=== PATIENT | male | born 1935 | race Caucasian/White ===

== ENCOUNTER → 2019-02-18 06:00 | Outpatient (REF) | payer MEDICARE, MEDICAID, SELFPAY ==
[2019-02-18 08:35] LABS: Hematocrit 42.8 % (40-54); Hemoglobin 13.9 g/dl (13.0-16.5); Mean Corp Hgb Conc 32.5 g/gl (32-36); Mean Corpuscular Hgb 31.8 pg (27.0-32.0); Mean Corpuscular Volume 97.9 fL (80-94); Platelet Count 146 K/mm3 (150-450); RBC Distribution Width CV 13.1 % (11.6-14.6); RBC Distribution Width SD 47.3 fl (35.1-43.9); Red Blood Count 4.37 M/mm3 (4.6-6.2)
[2019-02-18 08:38] LABS: Scan Indicated on CBC? Y/N NO
[2019-02-18 08:49] LABS: ALB/GLOB Ratio 0.9 RATIO (0.9-2.4); AST(SGOT) 23 U/L (15-37); Alanine Aminotransfer ALT/SGPT 30 U/L (16-61); Alkaline Phosphatase 50 U/L (45-117); Anion Gap 4 (5-15); BUN 17 mg/dL (7-18); BUN/Creat Ratio 12.3 RATIO (10-20); Calcium,Total 7.8 mg/dL (8.5-10.1); Chloride 111 mmol/L (98-107); Cholesterol 119 mg/dL (200); Creatinine, Serum 1.38 mg/dL (0.70-1.30); EST Glomerular Filtration Rate 52 mL/min (>60); Est Glom Filt Rate - Afr Amer 63 mL/min (>60); Globulin 3.3 g/dL (2.2-4.2); Glucose 98 mg/dL (74-106); High Density Lipoprotein 41 mg/dL; Protein, Total 6.3 g/dL (6.4-8.2); Sodium Level 141 mmol/L (136-145); Triglycerides 97 mg/dL; Very Low Density Lipoprotein 19 mg/dL (5-40)
== END ==
LOC: OLS.AVED 06:00
PROVIDERS: Visit Provider Family Medicine
DX: I10 Essential (primary) hypertension (principal); K21.9 Gastro-esophageal reflux disease without esophagitis
CPT/HCPCS: 36415; 80053; 80061; 85027

== ENCOUNTER → 2020-07-18 12:57 | Outpatient (CLI) | payer MEDICARE, MEDICAID, SELFPAY ==
--- NOTE | 2020-07-18 12:59 | ECHOD_ITS ---
Version 2 Reason For Study: Dyspnea/SOB Procedure This was a 2D Doppler, Color Flow transthoracic echocardiogram. Exam performed in department. Left Ventricle Normal LV size. Moderate concentric left ventricular hypertrophy. The estimated ejection fraction is 50 %. Stage 3 diastolic dysfunction. No regional wall motion abnormalities noted. Right Ventricle Normal RV size. Normal systolic function. Atria Normal left atrium. The right atrium is moderately enlarged. Tricuspid Valve Normal tricuspid valve. Mild (1+) tricuspid valve insufficiency. Pulmonary artery systolic pressure is 34 mmHg. Aortic Valve Trisinus/trileaflet aortic valve. Mild focal aortic valve calcification. Mild (1+) eccentric aortic valve insufficiency. Pulmonic Valve Normal pulmonic valve. Great Vessels Normal aortic root. The pulmonary artery is normal size. Normal inferior vena cava. Pericardium/Pleural No pericardial effusion. MMode/2D Measurements & Calculations LVIDd: 4.8 cm IVSd: 1.6 cm Ao root diam: 3.9 cm LVIDs: 3.4 cm LVPWd: 1.4 cm LA dimension: 4.1 cm FS: 29.8 % LAV(MOD-bp): 60.1 ml LA A4 area: 19.0 cm2 RA A4 area: 21.4 cm2 LAV(MOD-bp) Indexed: 24.8 ml/m2 LAV(MOD-sp2): 58.4 ml LAV(MOD-sp4): 56.8 ml Time Measurements MV dec time: 0.22 sec Doppler Measurements & Calculations MV E max chinedu: 81.5 cm/sec Lat Peak E' Chinedu: 9.9 cm/sec Med Peak E' Chinedu: 5.3 cm/sec MV A max chinedu: 35.5 cm/sec E/E' lat: 8.2 E/E' med: 15.4 MV E/A: 2.3 Ao V2 max: 132.1 cm/sec AI max chinedu: 479.0 cm/sec LV V1 max: 102.7 cm/sec Ao max P.0 mmHg AI max P.8 mmHg LV V1 max P.2 mmHg AI dec slope: 235.5 cm/sec2 AI P1/2t: 595.7 msec PA V2 max: 82.8 cm/sec TR max chinedu: 271.0 cm/sec TR max P.4 mmHg Interpretation Summary Normal LV size. Moderate concentric left ventricular hypertrophy. The estimated ejection fraction is 50 %. Stage 3 diastolic dysfunction. Mild (1+) eccentric aortic valve insufficiency. Ordering Physician: Evens Bermudez Referring Physician: Pawel Parra Performed By: Rolo Pereyra RCS
[2020-07-18 14:10] VITALS: PULSE 110; PULSE 76; PULSE 92; O2SAT 92; O2SAT 93
--- NOTE | 2020-07-18 14:12 | CPS ---
Patient walked continuously for 236 ft in the first 2 minutes, SpO2 92%. Patient about fell at the 2 minute and 26 second james, patient sat back down in wheelchair. Patient stated that his legs felt really weak and that he didn't think he could walk anymore.
--- NOTE | 2020-07-18 15:12 | PCM.PSN.6M ---
PSN 6 Minute Walk Test - 6 Minute Walk Test 6 Minute Walk Test: 6 Minute Walk Test PSN:6-Minute Walk Test Start: 07/18/20 14:10 Freq: Status: Active Protocol: [id number].6MINW Document 07/18/20 14:10 PEYTON (Rec: 07/18/20 14:14 PEYTON [id number]) 6 Minute Walk Test Date Performed 07/18/20 Time Performed 14:00 Height 6 ft Weight: 122.47 kg Weight in Pounds 270.[address]: Evens Bermudez Assistive device used: None Pre-test Oxygen Delivery Method Room Air Pulse Ox (%) 93 Pulse Rate (60-100 beats/min) 76 Dyspnea Galileo Scale (0-10) 0.5 Exertion Galileo Scale (6-20) 6 1st minute Oxygen Delivery Method Room Air Pulse Ox (%) 92 Pulse Rate (60-100 beats/min) 92 2nd minute Oxygen Delivery Method Room Air Pulse Ox (%) 92 Pulse Rate (60-100 beats/min) 110 H Full Laps Walked 4 Partial Lap, Number of Tiles Walked 0 Total Distance Walked (ft) 236 07/18/20 14:12 Cardiopulmonary Services by Breann Sesay Patient walked continuously for 236 ft in the first 2 minutes, SpO2 92%. Patient about fell at the 2 minute and 26 second james, patient sat back down in wheelchair. Patient stated that his legs felt really weak and that he didn't think he could walk anymore. Initialized on 07/18/20 14:12 - END OF NOTE - Interpretation Interpretation: The patient was able to ambulate only 236 feet over the course of 2 minutes on room air. The patient was noted to be 93% on room air, but had significant gait instability after 2 minutes. Patient did have some tachycardia as high as 110 bpm. The patient did not experience any significant desaturation during testing and stated that this is the longest I walked in a long time. These findings are consistent with a musculoskeletal limitation exercise tolerance. - Recommendations Recommendations: No supplemental oxygen is indicated at this time is greatly reduced given total distance of ambulation.
== END ==
PROVIDERS: PCP Family Medicine; Referring Provider Internal Medicine Critical Care Medicine; Visit Provider Internal Medicine Critical Care Medicine
DX: R06.00 Dyspnea, unspecified (principal)
CPT/HCPCS: 93306; 94618

== ENCOUNTER → 2020-07-19 09:51 | Outpatient (CLI) | payer MEDICARE, MEDICAID, SELFPAY ==
--- NOTE | 2020-07-19 13:44 | PFT ---
INTRODUCTION: The patient is an 85-year-old male that presents for pulmonary function studies secondary to a diagnosis of dyspnea. Respiratory therapy reports good patient effort. Bronchodilators were used during testing. INTERPRETATION: Forced expiration spirometry demonstrates the presence of a moderately severe large airways obstructive ventilatory defect. There was no significant response to aerosolized bronchodilators. Spirograms are of fair quality and plateau gradually. Body plethysmography was performed and reveals a decreased TLC to 5.56 L, 82% of predicted, indicative of a mild restrictive ventilatory impairment. Diffusing capacity by single breath CO is reduced at 51% of predicted. IMPRESSION: Irreversible moderately severe mixed ventilatory defect with symmetric reduction in diffusing capacity.
== END ==
PROVIDERS: PCP Family Medicine; Referring Provider Internal Medicine Critical Care Medicine; Visit Provider Internal Medicine Critical Care Medicine
DX: R06.00 Dyspnea, unspecified (principal)
CPT/HCPCS: 94060; 94726; 94729

== ENCOUNTER 2020-12-23 12:44 | Emergency (ER) | payer MEDICARE, MEDICAID, SELFPAY ==
[2020-12-23 12:45] VITALS: BP 125/75; PULSE 85; RESP 19; TEMP 36.9; O2SAT 96; BMI 27.6
--- NOTE | 2020-12-23 13:05 | EKG12_ITS ---
Test Reason : Blood Pressure : / mmHG Vent. Rate : 086 BPM Atrial Rate : 078 BPM P-R Int : 000 ms QRS Dur : 088 ms QT Int : 372 ms P-R-T Axes : 000 -24 053 degrees QTc Int : 445 ms Atrial fibrillation Nonspecific ST abnormality Abnormal ECG Confirmed by RAND NESBITT, SARAY ([id number]), makeup editor IMAN GARCIA ([id number]) on 12/27/2020 10:52:42 AM Referred By: DONNIE/TRINA Confirmed By:SARAY GORDILLO MD
--- NOTE | 2020-12-23 13:10 | NURSING ---
NO OLD EKGS
--- NOTE | 2020-12-23 13:21 | ED.VISSUMM ---
- ER Visit Summary Date of Service: 12/23/20 Chief Complaint: Weakness and confusion History of Present Illness: The patient is a 85 M who presents with weakness and confusion that became worse today. Patient has a history of dementia and Parkinson's disease. Patient does not know why he is here. Patient is a very poor historian. Patient does not think he had any fevers recently. Patient does not answer any further questions. Physical Examination: Vital signs are stable. Patient is afebrile. Patient is in no acute distress. Oral mucosa is pink and somewhat dry. Neck is supple. Trachea is midline. There is no JVD. Heart was irregularly irregular. Lungs are clear and equal bilaterally. Abdomen is soft. Bowel sounds are normal. There is no tenderness. There is no rebound or guarding noted. Cranial nerves II through XII are grossly intact. There are no focal motor or sensory deficits noted. Extremities are intact. There is no calf tenderness or edema. Test Results: EKG was obtained. On my interpretation, there is atrial fibrillation with a rate of 86. There are no acute ST or T wave changes. CBC shows a mild leukocytosis of 15.1. Comprehensive metabolic profile showed an elevated BUN of 36 and a elevated total bilirubin of 2.5. AST was normal. ALT was normal. Urinalysis shows a specific gravity 1.025. There is no evidence of urinary tract infection. Troponin was normal. Lactate was normal. COVID-19 rapid antigen was negative. Portable 1 view chest x-ray was obtained. On my interpretation, lung garrett are clear. There is a moderate sized hiatal hernia. There is normal cardiac silhouette. Bony thorax is normal. There is no acute process noted. Radiologist also interpreted the x-ray and agrees. Emergency Department Course and Treatment: Patient was given IV fluids. Patient was feeling better on reevaluation. Patient will be discharged back to his extended care facility. Patient and family understood and were agreeable with the plan. All questions were answered. Disposition: Discharge Impression: 1. Dehydration This note was generated with [employer] dictation software. It may contain incorrect words, spelling, and punctuation that were not noted in review of the chart prior to signing ED Disposition - Plan for ED Patient: Disposition: Jail Facility Diagnosis: Dehydration Instructions: ED Dehydration (Adult) Referrals: Pawel Parra MD [Primary Care Provider] - 5-7 Days
--- NOTE | 2020-12-23 13:23 | RAD_ITS ---
STUDY: X-RAY CHEST REASON FOR EXAM: Male, 85 years old. WEAKNESS AND CONFUSION HX OF COPD TECHNIQUE: Single AP portable view of the chest. COMPARISON: None. FINDINGS: EKG electrodes are seen. The lungs are clear and expanded. There is no demonstrated pleural abnormality. Normal size heart. Normal mediastinum and pasha. Normal visualized pulmonary arteries. There is atherosclerotic tortuosity of the aortic arch and descending thoracic aorta. There are degenerative changes of the visualized thoracic spine. There is degenerative osteoarthritis of the bilateral shoulders. Moderate sized hiatal hernia. RAD/Chest 1 View (Portable) IMPRESSION: Moderate sized hiatal hernia. Electronically Signed: Malik Sanchez MD at 13:57 EST , Service support ,
[2020-12-23 13:27] LABS: Absolute Neutrophil Count 10.5 X10^3/uL (2.0-7.7); Basophil# 0.04 X10^3/uL; Basophil% 0.3 % (0-1); Eosinophil# 0.17 X10^3/uL; Eosinophils% 1.1 % (0-5); Hemoglobin 13.9 g/dL (13.0-16.5); Lymphocyte % 12.6 % (19-41); Mean Corp Hgb Conc 31.6 g/dL (32-36); Mean Corpuscular Volume 101.1 fL (80-94); Mean Platelet Vol. 10.8 fl (6.2-12.0); Monocyte# 2.36 X10^3/uL; Monocyte% 15.7 % (0-10); NRBC Flagged by Analyzer 0 % (0-5); Neutrophil # 10.47 X10^3/uL (2.7-7.7); Neutrophil % 69.5 % (47-70); POSITIVE DIFFERENTIAL YES; Platelet Count 199 K/mm3 (150-450); RBC Distribution Width CV 12.5 % (11.6-14.6); RBC Distribution Width SD 47.4 fl (35.1-43.9); Red Blood Count 4.35 M/mm3 (4.6-6.2); White Blood Count 15.1 K/mm3 (4.4-11.0)
[2020-12-23 13:29] LABS: Differential Indicated SCAN CRITERIA MET
[2020-12-23 13:46] LABS: ALB/GLOB Ratio 0.6 RATIO (0.9-2.4); AST(SGOT) 12 U/L (15-37); Alanine Aminotransfer ALT/SGPT 28 U/L (16-61); Albumin, Serum 2.6 g/dL (3.2-5.0); Alkaline Phosphatase 94 U/L (45-117); Anion Gap 5 (5-15); BUN 36 mg/dL (7-18); BUN/Creat Ratio 27.7 RATIO (10-20); Calcium,Total 8.3 mg/dL (8.5-10.1); Chloride 108 mmol/L (98-107); EST Glomerular Filtration Rate 56 mL/min (>60); Est Glom Filt Rate - Afr Amer 68 mL/min (>60); Estimated Creatinine Clearance 47.26 ml/min; Globulin 4.3 g/dL (2.2-4.2); Glucose 105 mg/dL (74-106); Potassium 4.6 mmol/L (3.5-5.1); Protein, Total 6.9 g/dL (6.4-8.2); Sodium Level 138 mmol/L (136-145)
[2020-12-23 14:38] LABS: Bacteria 0 SEEN /hpf (None Seen); Mucous, Urine 0 SEEN /hpf (<or=2+)
[2020-12-23 14:44] LABS: Color, Urine Yellow (Yellow); Glucose, Dipstick Normal (Normal); Ketone-Dipstick 5 mg/dl (Negative); Leukocyte Esterase-Dipstick 25 /ul (Negative); Nitrite-Dipstick Negative (Negative); Occult Blood-Urine 10 /ul (Negative); Protein-Dipstick 30 mg/dl (Negative); Specific Gravity, Urine 1.025 (1.002-1.030); Urine Bilirubin Dipstick Negative (Negative); Urine Clarity Sl. Cloudy (Clear); Urine Urobilinogen 4 mg/dl (Normal)
[2020-12-23 14:46] VITALS: BP 131/77; PULSE 79; RESP 18; O2SAT 99
[2020-12-23] MEDS: 0.9% Normal Saline 1,000 ML 1000 ML IV (14:46)
[2020-12-23 14:49] LABS: Red Blood Cells-Urine 0-5 SEEN /hpf (0-5); Squamous Epithelial Cells - UA 0-5 SEEN /hpf (0-5); White Blood Cells 0-5 SEEN /hpf (0-5)
--- NOTE | 2020-12-23 15:36 | NURSING ---
FAXED CHART TO HOSPICE
[2020-12-23] MEDS: 0.9% Normal Saline 1,000 ML 999 ML IV (16:00)
[2020-12-23 16:01] VITALS: BP 141/67; PULSE 74; RESP 16; O2SAT 97
--- NOTE | 2020-12-23 16:52 | NURSING ---
CALLED [facility], ETA IS 2 HRS
--- NOTE | 2020-12-23 18:15 | NURSING ---
CALLED FOR [facility] UPDATE. THEY ARE WORKING ON GETTING A [facility] HERE.
[2020-12-23 18:58] VITALS: BP 133/71; PULSE 71; RESP 18; O2SAT 98
[2020-12-26 13:18] LABS: Pathologist Review Reviewed
== END 2020-12-23 20:23 | disposition skilled nursing facility (03) ==
PROVIDERS: Emergency Provider Emergency Medicine; PCP Family Medicine
DX: E86.0 Dehydration (principal); K44.9 Diaphragmatic hernia without obstruction or gangrene; G20 Parkinson's disease; F02.80 Dementia in other diseases classified elsewhere, unspecified severity, without behavioral disturbance, psychotic disturbance, mood disturbance, and anxiety; Z79.899 Other long term (current) drug therapy
CPT/HCPCS: 71045; 80053; 81001; 83605; 84484; 85025; 87040; 87426; 93005; 96360; 96361; 99285; J7030; A4216

== ENCOUNTER 2021-04-06 10:24 | Observation (INO) | payer MEDICARE, MEDICAID, SELFPAY ==
[2021-02-22 07:16] VITALS: BMI 27.1
[2021-04-06] VITALS (16 sets, daily range): BP systolic 149–179; BP diastolic 82–98; PULSE 71–102; RESP 16–20; TEMP 36.6–37; O2SAT 93–97; BMI 28.8; BMI 27.4
--- NOTE | 2021-04-06 10:44 | EKG12_ITS ---
Test Reason : STROKE TEAM Blood Pressure : / mmHG Vent. Rate : 083 BPM Atrial Rate : 065 BPM P-R Int : 000 ms QRS Dur : 106 ms QT Int : 402 ms P-R-T Axes : 000 -46 046 degrees QTc Int : 472 ms Atrial fibrillation Left anterior fascicular block Nonspecific ST abnormality Abnormal ECG Confirmed by RAND NESBITT, SARAY ([id number]), newspaper or periodical editor EILEEN MATHUR ([id number]) on 04/10/2021 12:30:54 PM Referred By: DAMIAN Confirmed By:SARAY GORDILLO MD
--- NOTE | 2021-04-06 10:44 | RAD_ITS ---
STUDY: X-RAY CHEST REASON FOR EXAM: Male, 86 years old. Neuro deficit, acute, stroke suspected TECHNIQUE: Single AP portable view of the chest. COMPARISON: Comparison is made with prior study dated 12/23/2020. FINDINGS: EKG electrodes are seen. The lungs are clear and expanded. There is no demonstrated pleural abnormality. Normal size heart. Normal mediastinum and pasha. Normal visualized pulmonary arteries. There is atherosclerotic tortuosity of the aortic arch and descending thoracic aorta. There are degenerative changes of the visualized thoracic spine. Normal visualized ribs, clavicles, and shoulders. There is no demonstrated abnormality of the visualized soft tissue structures of the upper abdomen. RAD/Chest 1 View IMPRESSION: No acute abnormality is seen. Electronically Signed: Malik Sanchez MD at 13:12 EDT , Service support ,
--- NOTE | 2021-04-06 10:45 | CT_ITS ---
STUDY: CTA HEAD AND NECK WITH CONTRAST REASON FOR EXAM: Male, 86 years old. Neuro deficit, acute, stroke suspected RADIATION DOSAGE (If Supplied By Facility): CTDIvol = ( 31.28 ) mGy, DLP = ( 775.41 ) mGycm TECHNIQUE: CT angiography was performed with a multi-detector CT scanner. Data acquisition was obtained from the skull base through the vertex following intravenous administration of IV 100mL [id number]-[id number]. MIP images were reconstructed from the axial data set. Post-processing of the angiographic images was performed, with multiplanar reformation and 3D reconstruction. Individualized dose optimization techniques were used for this CT. COMPARISON: No relevant priors. FINDINGS: Normal bilateral petrous carotid arteries. There is calcified plaque formation of the right cavernous carotid artery, without a cross-sectional luminal stenosis. There is calcified plaque formation of the left cavernous carotid artery, without a cross-sectional luminal stenosis. Normal right A1 segments of the anterior cerebral artery. Normal left A1 segments of the anterior cerebral artery. Normal intact anterior communicating artery (ACOM). Normal bilateral A2 segments of the anterior cerebral arteries. Normal right M1 and M2 segments of the middle cerebral arteries, with a normal M1 bifurcation. Normal left M1 and M2 segments of the middle cerebral arteries, with a normal M1 bifurcation. Normal right posterior communicating artery (PCOM). Normal left posterior communicating artery (PCOM). Normal bilateral vertebral arteries. Normal basilar artery with a normal basilar bifurcation. The visualized bilateral superior cerebellar (SCA) arteries are normal. Normal bilateral P1, P2 and visualized P3 segments of the posterior cerebral arteries. There is no demonstrated aneurysm of the [place]. There is no demonstrated abnormality of the visualized brain. AORTIC ARCH: There is atherosclerotic calcific plaque formation of the aortic arch and great vessels arising from the aortic arch, without a hemodynamically significant stenosis. There is a normal origin of the brachiocephalic, left common carotid, and left subclavian arteries. Normal origins of the brachiocephalic, left common carotid, and left subclavian arteries. RIGHT CAROTID ARTERIES: Normal right common carotid artery (CCA). Normal right common carotid bulb. There is extensive atherosclerotic plaque formation of the origin of the right internal carotid artery with an estimated stenosis of greater than 70%. Normal visualized cervical portion of the right internal carotid artery. Normal origin of the right external carotid artery (ECA). LEFT CAROTID ARTERIES: Normal left common carotid artery (CCA). Normal left common carotid bulb. There is extensive atherosclerotic plaque formation of the origin of the left internal carotid artery with an estimated stenosis of greater than 70%. Normal visualized cervical portion of the left internal carotid artery. Normal origin of the left external carotid artery (ECA). VERTEBRAL ARTERIES: There is enhancement within the bilateral vertebral arteries with a small left vertebral artery, and a dominant right vertebral artery. 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 N.B. : The above information has been verbally conveyed by Malik Sanchez MD to Osito John on 04/06/2021 11:24:15 (ET). Electronically Signed: Malik Sanchez MD at 11:25 EDT , Service support ,
--- NOTE | 2021-04-06 10:47 | ED.VIS.STROK ---
HPI History of Present Illness Chief Complaint: Weakness [facility] Medical History Anxiety disorder, unspecified Benign prostatic hyperplasia with lower urinary tract symptoms Chronic obstructive pulmonary disease, unspecified Dehydration Dementia Dementia with Lewy bodies Diarrhea Diplopia Dry eye syndrome of bilateral lacrimal glands Elevated WBC count Essential (primary) hypertension Generalized anxiety disorder GERD (gastroesophageal reflux disease) Hypertensive retinopathy, bilateral Impulse disorder, unspecified Major depressive disorder Migraine Muscle weakness (generalized) Obesity, unspecified Other right bundle-branch block Parkinson disease Parkinsons disease Peripheral vascular disease Presence of intraocular lens Repeated falls Unspecified atrial fibrillation Home Medications albuterol sulfate 2.5 mg INHALATION Q4H PRN 05/19/20 [History Last Taken Unknown] aluminum-mag hydroxide-simethicone 200 mg-200 mg-20 mg/5 mL oral susp 20 ml PO TID PRN 05/19/20 [History Last Taken Unknown] aspirin 81 mg tablet,delayed release 81 mg PO DAILY 05/19/20 [History Last Taken 12/22/20] fluticasone propionate 50 mcg/actuation nasal spray,suspension 2 spray INTRANASAL DAILY 05/19/20 [History Last Taken 12/22/20] guaifenesin 100 mg/5 mL oral liquid 200 mg PO Q4H PRN 05/19/20 [History Last Taken Unknown] ipratropium 20 mcg-albuterol 100 mcg/actuation mist for inhalation 1 puff INHALATION TID 05/19/20 [History Last Taken 12/22/20] lorazepam 0.5 mg tablet 0.5 mg PO DAILY PRN 05/19/20 [History Last Taken 12/22/20] melatonin 3 mg tablet 3 mg PO QHS 05/19/20 [History Last Taken 12/22/20] memantine 10 mg tablet 10 mg PO BID tab 05/19/20 [History Last Taken 12/22/20] metoprolol succ 25 mg-hydrochlorothiazide 12.5 mg tablet,ext.rel 24 hr 0.5 tab PO BID tab 05/19/20 [History Last Taken Unknown] mirtazapine 15 mg tablet 15 mg PO QHS 05/19/20 [History Last Taken Unknown] omeprazole 40 mg capsule,delayed release 40 mg PO DAILY 05/19/20 [History Last Taken 12/22/20] paroxetine HCl 40 mg tablet 40 mg PO DAILY 05/19/20 [History Last Taken Unknown] sodium phosphates 19 gram-7 gram/118 mL enema 118 ml RC ONCE PRN 05/19/20 [History Last Taken Unknown] tamsulosin 0.4 mg capsule 0.4 mg PO DAILY 05/19/20 [History Last Taken Unknown] lisinopril 20 mg PO DAILY 12/23/20 [History Last Taken 12/22/20] multivitamin with minerals 1 tab PO DAILY 12/23/20 [History Last Taken 12/22/20] polyethylene glycol 3350 17 gm PO DAILY 12/23/20 [History Last Taken 12/22/20] furosemide 40 mg PO DAILY 04/06/21 [History Last Taken Unknown] gabapentin 100 mg PO QHS 04/06/21 [History Last Taken Unknown] Allergy/AdvReac Type Severity Reaction Status Date / Time No Known Allergies Allergy Verified 04/06/21 10:26 Surgical History No pertinent past surgical history Social History Smoking Status: Former smoker Tobacco: How many years used: 9 ROS ROS ED Constitutional Constitutional ED: Denies chills, fever(s) or sweats Eyes Eyes: Denies blurry vision or change in vision ENT ENT ED: Denies ear pain, rhinorrhea or sore throat Cardiovascular Cardiovascular: Denies chest pain, palpitations or racing heartbeat Respiratory/Chest Respiratory/Chest: Reports dyspnea; Denies cough or sputum Gastrointestinal Gastrointestinal: Denies abdominal pain, constipation, diarrhea or vomiting Genitourinary Genitourinary ED: Denies dysuria, hematuria or urinary frequency Musculoskeletal Musculoskeletal: Denies arthralgias, myalgias or neck pain Integumentary Denies abscess, Abrasions or rash Neurologic Neurologic: Reports headache(s), paresthesias, weakness and other Details: Patient reports generalized weakness. His son states he was unable to finish his sentences this morning. Patient unable to let go of his drink with his right hand. He spilled this all over. Psychiatric Psychiatric: Denies anxiety, depression, suicidal ideation or suicidal thoughts Endocrine Endocrinology: Denies polydipsia or polyuria EXAM Physical Exam Const Vital Signs: 04/06/21 10:27 04/06/21 10:37 04/06/21 10:58 Temperature 97.8 F Temperature Source Temporal Pulse Rate 86 Respiratory Rate 18 Respiratory Effort Short of Breath Respiratory Pattern Normal Blood Pressure 179/84 H Blood Pressure Mean 115 Pulse Ox 96 Oxygen Delivery Method Room Air Room Air 04/06/21 11:03 04/06/21 11:08 04/06/21 11:11 Temperature Temperature Source Pulse Rate 86 97 95 Respiratory Rate 17 16 16 Respiratory Effort Respiratory Pattern Blood Pressure 152/86 H 152/86 H 152/86 H Blood Pressure Mean 108 108 108 Pulse Ox 94 93 94 Oxygen Delivery Method Room Air Room Air Room Air 04/06/21 11:30 04/06/21 12:00 04/06/21 13:00 Temperature Temperature Source Pulse Rate 81 82 82 Respiratory Rate 17 16 20 H Respiratory Effort Respiratory Pattern Blood Pressure 155/98 H 172/82 H 149/96 H Blood Pressure Mean 117 112 113 Pulse Ox 94 94 93 Oxygen Delivery Method Room Air Room Air Room Air General Appearance ED: Negative for pallor HEENT Reports normocephalic, head/scalp atraumatic and moist mucous membranes Eyes PERRL and EOMs intact bilaterally Neck no lymphadenopathy and supple Chest Wall inspection of chest normal and palpation of chest normal Resp normal respiratory effort and clear to auscultation bilaterally Auscultation: Negative for rales, rhonchi or wheezes Cardio regular rate and regular rhythm GI normal to inspection, nondistended, normoactive bowel sounds and non-distended Auscultation: normoactive bowel sounds Palpation: soft Narrative: Deferred Back/Spine no CVA tenderness General Back: Negative for CVA tenderness Cervical Spine: Negative for cervical spine tenderness Extremity normal to inspection General Extremety ED: Yes edema and tenderness General Extremity: edema Neuro oriented x3 and CN's II-XII intact bilaterally Neuro Narrative: Bilateral leg drift without hitting bed. Bilateral arm drift which does hit the bed. Tremor. Sensorium / Orientation: alert Motor Exam: strength 5/5 throughout Psych mental status grossly normal Attitude: No agitated Skin no rashes or lesions noted and no wounds General Skin Exam: Negative for jaundice or pallor STROKE Vital Signs/Narrative: Vital Signs Temp Pulse Resp BP Pulse Ox 04/06/21 13:00 82 20 H 149/96 H 93 04/06/21 12:00 82 16 172/82 H 94 04/06/21 11:30 81 17 155/98 H 94 04/06/21 11:11 95 16 152/86 H 94 04/06/21 11:08 97 16 152/86 H 93 04/06/21 11:03 86 17 152/86 H 94 04/06/21 10:27 97.8 F 86 18 179/84 H 96 MDM MDM MDM Narrative Medical decision making narrative: 86-year-old male presenting with strokelike symptoms. Son states that he was unable to get him to finish sentences and they had some difficulty grasping and then letting go of a cup. He denied any slurred speech. Son does state the patient has weakness at baseline has difficulty ambulating but today was unable to get up secondary to weakness. Patient's initial NIH was 6 however while being evaluated by neurology he was able to hold his arms and legs up without difficulty and had no drift. There has been no change in this since he improved. Patient had EKG performed on arrival which shows atrial fibrillation 83 bpm without signs of ischemic change. CT brain and CTA of the head and neck are negative for acute stroke. There is some narrowing of the bilateral internal carotid arteries. This was discussed with the stroke neurologist and I do not believe that this is the cause of the patient's symptoms. I do have concern he has worsening progression of his dementia and his Parkinson's disease. Was recommended to be admitted for MRI and neurology consult. Chest x-ray is interpreted by myself shows no acute cardiopulmonary process. Lab work is unremarkable. At this point I will admit the patient for TIA. Patient was given aspirin in the ED. His vital signs were reviewed prior to going to the medical floor and are stable. Impression: 1. TIA 2. History of Parkinson's disease 3. Generalized weakness Lab Data Attestation: I reviewed the patient's lab results. Labs: Laboratory Results - last 24 hr 04/06/21 04/06/21 04/06/21 11:01 11:02 11:02 WBC 8.9 RBC 3.99 L Hgb 12.5 L Hct 39.3 L MCV 98.5 H MCH 31.3 MCHC 31.8 L RDW Std Deviation 46.4 H RDW Coeff of Praneeth 12.7 Plt Count 196 MPV 10.2 Immature Gran % (Auto) 0.400 Neut % (Auto) 59.5 Lymph % (Auto) 26.6 Valley % (Auto) 11.0 H Eos % (Auto) 2.1 Baso % (Auto) 0.4 Absolute Neuts (auto) 5.3 Absolute Lymphs (auto) 2.37 Nucleated RBC % 0 PT 13.6 INR 1.1 APTT 30.1 Sodium Potassium Chloride Carbon Dioxide Anion Gap BUN Creatinine Estim Creat Clear Calc Est GFR (MDRD) Af Amer Est GFR (MDRD) Non-Af BUN/Creatinine Ratio Glucose Calcium Troponin I Urine Color Urine Clarity Urine pH Ur Specific [place] Urine Protein Urine Glucose (UA) Urine Ketones Urine Occult Blood Urine Nitrite Urine Bilirubin Urine Urobilinogen Ur Leukocyte Esterase Urine RBC Urine WBC Ur Squamous Epith Cells Urine Bacteria Urine Mucus POC Glucose 104 04/06/21 04/06/21 11:02 12:25 WBC RBC Hgb Hct MCV MCH MCHC RDW Std Deviation RDW Coeff of Praneeth Plt Count MPV Immature Gran % (Auto) Neut % (Auto) Lymph % (Auto) Valley % (Auto) Eos % (Auto) Baso % (Auto) Absolute Neuts (auto) Absolute Lymphs (auto) Nucleated RBC % PT INR APTT Sodium 141 Potassium 3.6 Chloride 102 Carbon Dioxide 34.0 H Anion Gap 5 BUN 29 H Creatinine 1.22 Estim Creat Clear Calc 49.47 Est GFR (MDRD) Af Amer 73 Est GFR (MDRD) Non-Af 60 BUN/Creatinine Ratio 23.8 H Glucose 96 Calcium 8.2 L Troponin I < 0.015 Urine Color Straw Urine Clarity Clear Urine pH 7.0 Ur Specific [place] 1.005 Urine Protein Negative Urine Glucose (UA) Normal Urine Ketones Negative Urine Occult Blood Negative Urine Nitrite Negative Urine Bilirubin Negative Urine Urobilinogen Normal Ur Leukocyte Esterase 25 H Urine RBC 0 SEEN Urine WBC 0-5 SEEN Ur Squamous Epith Cells 0-5 SEEN Urine Bacteria 0 SEEN Urine Mucus 0 SEEN POC Glucose Radiography Diagnostic Testing: Radiology Impression Chest X-Ray 04/06/21 10:44 IMPRESSION: No acute abnormality is seen. Electronically Signed: Malik Sanchez MD at 13:12 EDT , Service support , Head/Neck CTA 04/06/21 10:45 IMPRESSION: High-grade stenosis at the origins of the right and left internal carotid arteries. N.B. : The above information has been verbally conveyed by Malik Sanchez MD to Osito Lopez on 04/06/2021 11:24:15 (ET). Electronically Signed: Malik Sanchez MD at 11:25 EDT , Service support , ADDENDUM: 04/06/21 1132 IMPRESSION: High-grade stenosis at the origins of the right and left internal carotid arteries. N.B. : The above information has been verbally conveyed by Malik Sanchez MD to Osito Lopez on 04/06/2021 11:24:15 (ET). Electronically Signed: Malik Sanchez MD at 11:25 EDT , Service support , Brain CT 04/06/21 10:50 IMPRESSION: Chronic involutional changes of the brain. N.B. : The above information has been verbally conveyed by Malik Sanchez MD to Osito Lopez on 04/06/2021 11:05:25 (ET). Electronically Signed: Malik Sanchez MD at 11:06 EDT , Service support , ADDENDUM: 04/06/21 1113 IMPRESSION: Chronic involutional changes of the brain. N.B. : The above information has been verbally conveyed by Malik Sanchez MD to Osito Lopez on 04/06/2021 11:05:25 (ET). Electronically Signed: Malik Sanchez MD at 11:06 EDT , Service support , Stroke Documentation Questions Stroke Team Activated: Yes Reviewed Inclusion/Exclusion criteria: Yes Was Patient considered for Endovascular Intervention?: No IV Alteplase (t-PA) Administered: No No contraindications for IV Alteplase (t-PA) administration.: Yes Alteplase (t-PA) risks, benefits, alternative discussed: No Not given: Patient refusal: No Discharge Plan Dx/Rx/DC Orders Clinical Impression: TIA (transient ischemic attack), Episode of generalized weakness Disposition Disposition: Acute Care Hospital [facility]
--- NOTE | 2021-04-06 10:50 | CT_ITS ---
STUDY: CT HEAD STROKE PROTOCOL W/O CONTRAST INJECTION REASON FOR EXAM: Male, 86 years old. Neuro deficit, acute, stroke suspected RADIATION DOSAGE (If Supplied By Facility): CTDIvol = ( 44.99 ) mGy, DLP = ( 779.24 ) mGycm TECHNIQUE: Transaxial CT imaging of the brain was performed without administration of intravenous contrast material. Individualized dose optimization techniques were used for this CT. COMPARISON: No relevant priors. FINDINGS: Normal soft tissue structures. Normal calvarium. There is mild cerebral atrophy with widening of the extra-axial spaces and ventricular dilatation. There are areas of decreased attenuation within the white matter tracts of the supratentorial brain, consistent with microvascular disease changes. Normal basal ganglia and thalami. Normal brainstem. Normal cerebellum. There is no intracranial hemorrhage. There are no findings of an acute ischemic infarction. Atherosclerotic calcification of the vertebral arteries and cavernous portions of the internal carotid arteries bilaterally. Normal visualized paranasal sinuses. CT/STROKE Brain/Head without Cont IMPRESSION: Chronic involutional changes of the brain. N.B. : The above information has been verbally conveyed by Malik Sanchez MD to Osito Lopez on 04/06/2021 11:05:25 (ET). Electronically Signed: Malik Sanchez MD at 11:06 EDT , Service support ,
--- NOTE | 2021-04-06 10:50 | CM.ED ---
SOCIAL WORK Stroke Alert Responded to Stroke Alert. Patient out of room at this time. Family at bedside reviewing patient's medical history with nursing. This worker to remain available for needs. Zev Akhtar, [employer] OPERATOR, SIGNALLING AND COMMUNICATIONS ENGINEER
[2021-04-06 11:05] LABS: Bedside Glucose 104 mg/dL (70-110)
[2021-04-06 11:11] LABS: Absolute Lymphocyte Count 2.37 X10^3/uL (0.83-4.51); Absolute Neutrophil Count 5.3 X10^3/uL (2.0-7.7); Basophil# 0.04 X10^3/uL; Basophil% 0.4 % (0-1); Eosinophil# 0.19 X10^3/uL; Eosinophils% 2.1 % (0-5); Hematocrit 39.3 % (40-54); Hemoglobin 12.5 g/dL (13.0-16.5); Lymphocyte # 2.37 X10^3/ul (0.83-4.51); Lymphocyte % 26.6 % (19-41); Mean Corp Hgb Conc 31.8 g/dL (32-36); Mean Corpuscular Hgb 31.3 pg (27.0-32.0); Mean Corpuscular Volume 98.5 fL (80-94); Mean Platelet Vol. 10.2 fl (6.2-12.0); Monocyte# 0.98 X10^3/uL; NRBC Flagged by Analyzer 0 % (0-5); Neutrophil # 5.28 X10^3/uL (2.7-7.7); Neutrophil % 59.5 % (47-70); Platelet Count 196 K/mm3 (150-450); RBC Distribution Width CV 12.7 % (11.6-14.6); RBC Distribution Width SD 46.4 fl (35.1-43.9); Red Blood Count 3.99 M/mm3 (4.6-6.2); White Blood Count 8.9 K/mm3 (4.4-11.0)
[2021-04-06 11:19] LABS: International Normalized Ratio 1.1; Prothrombin Time (Protime)PT. 13.6 SECONDS (11.7-14.9)
[2021-04-06 11:20] LABS: Partial Thromboplast Time 30.1 Seconds (24.1-36.2)
[2021-04-06 11:30] LABS: Anion Gap 5 (5-15); BUN 29 mg/dL (7-18); BUN/Creat Ratio 23.8 RATIO (10-20); Calcium,Total 8.2 mg/dL (8.5-10.1); Chloride 102 mmol/L (98-107); Creatinine, Serum 1.22 mg/dL (0.70-1.30); EST Glomerular Filtration Rate 60 mL/min (>60); Est Glom Filt Rate - Afr Amer 73 mL/min (>60); Estimated Creatinine Clearance 49.47 ml/min; Glucose 96 mg/dL (74-106); Potassium 3.6 mmol/L (3.5-5.1); Sodium Level 141 mmol/L (136-145)
[2021-04-06 12:33] LABS: Bacteria 0 SEEN /hpf (None Seen); Mucous, Urine 0 SEEN /hpf (<or=2+); Red Blood Cells-Urine 0 SEEN /hpf (0-5)
[2021-04-06 12:34] LABS: Color, Urine Straw (Yellow); Glucose, Dipstick Normal (Normal); Ketone-Dipstick Negative (Negative); Leukocyte Esterase-Dipstick 25 /ul (Negative); Nitrite-Dipstick Negative (Negative); Occult Blood-Urine Negative /ul (Negative); Protein-Dipstick Negative (Negative); Specific Gravity, Urine 1.005 (1.002-1.030); Urine Bilirubin Dipstick Negative (Negative); Urine Clarity Clear (Clear); Urine Urobilinogen Normal (Normal)
[2021-04-06 12:40] LABS: Squamous Epithelial Cells - UA 0-5 SEEN /hpf (0-5); White Blood Cells 0-5 SEEN /hpf (0-5)
--- NOTE | 2021-04-06 13:01 | HP.PCM.HOS_ITS ---
HPI - General General Date of Admission: 04/06/21 HPI Narrative ANDER ESCOBAR, is a 86 M with an extensive PMH as outlined who was admitted via the ED on 04/06/2021 with a complaint of complaint of weakness. His last knewn well awas at 9pm last night, and started having some shakiness of his extremities. He was noted to be having more shakiness of his extremities, and spilled water. His son was by his bedside went to see him in the retirement today and noticed that his father was much more tremulous than usual so the decided to bring him into the hospital. He has not noticed any focal deficit but notes that his father has been having difficulty swallowing. He denied any fever, chills, palpitations, dizziness, nausea vomiting or diarrhea. Review of systems otherwise negative. Due to concerns about a possible stroke, he was brought in to the ED. He was also noted to have some expressive aphasia, so a stroke alert was called. Neurology was consulted and thought his symptoms could be due to an extension of his dementia and Parkinson's disease. In the ED, vitals showed BP of 172/82, CO of 82, RR of 16 and he was saturating at 94% on room air. CBC showed Hb of 12.5, and platelets of 196. BMP showed Cr of 1.22. UA showed wbc of 0-5. CT of the brain was negative for stroke and showed only chronic involutional changes. CTA of the head and neck showed extensive atherosclerotic plaque formation of the origin of the right and left internal carotid arteries with an estimated stenosis of greater than 70%. He is being admitted to be managed for increased tremors and altered mental status, to rule out a stroke. [facility] Medical History Anxiety disorder, unspecified Benign prostatic hyperplasia with lower urinary tract symptoms Chronic obstructive pulmonary disease, unspecified Dehydration Dementia Dementia with Lewy bodies Diarrhea Diplopia Dry eye syndrome of bilateral lacrimal glands Elevated WBC count Essential (primary) hypertension Generalized anxiety disorder GERD (gastroesophageal reflux disease) Hypertensive retinopathy, bilateral Impulse disorder, unspecified Major depressive disorder Migraine Muscle weakness (generalized) Obesity, unspecified Other right bundle-branch block Parkinson disease Parkinsons disease Peripheral vascular disease Presence of intraocular lens Repeated falls Unspecified atrial fibrillation Home Medications aspirin 81 mg tablet,delayed release 81 mg PO DAILY 05/19/20 [History Last Taken 04/06/21 08:24] fluticasone propionate 50 mcg/actuation nasal spray,suspension 2 spray INTRANASAL DAILY 05/19/20 [History Last Taken 04/06/21 08:24] ipratropium 20 mcg-albuterol 100 mcg/actuation mist for inhalation 1 puff INHALATION 4X/DAY 05/19/20 [History Last Taken 04/05/21 11:49] lorazepam 0.5 mg tablet 0.5 mg PO DAILY PRN 05/19/20 [History Last Taken 04/06/21 09:24] melatonin 3 mg tablet 3 mg PO QHS 05/19/20 [History Last Taken 04/05/21 20:14] memantine 10 mg tablet 10 mg PO BID tab 05/19/20 [History Last Taken 04/06/21 08:24] mirtazapine 15 mg tablet 15 mg PO QHS 05/19/20 [History Last Taken 04/05/21 20:14] omeprazole 40 mg capsule,delayed release 40 mg PO DAILY 05/19/20 [History Last Taken 04/06/21 08:24] paroxetine HCl 40 mg tablet 40 mg PO DAILY 05/19/20 [History Last Taken 04/06/21 08:24] tamsulosin 0.4 mg capsule 0.4 mg PO DAILY 05/19/20 [History Last Taken 04/05/21 20:14] lisinopril 20 mg PO DAILY 12/23/20 [History Last Taken 04/06/21 08:24] multivitamin with minerals 1 tab PO DAILY 12/23/20 [History Last Taken 04/06/21 08:24] polyethylene glycol 3350 17 gm PO DAILY 12/23/20 [History Last Taken 04/06/21 08:24] acetaminophen [Tylenol] 325 mg PO TID PRN 04/06/21 [History Last Taken 04/06/21 05:03] furosemide 40 mg PO DAILY 04/06/21 [History Last Taken 04/06/21 08:24] gabapentin 100 mg PO QHS 04/06/21 [History Last Taken 04/05/21 20:14] metoprolol tartrate 12.5 mg PO BID 04/06/21 [History Last Taken 04/06/21 08:24] nut tx, lact-reduced, iron [Boost VHC] 1 ea PO TID 04/06/21 [History Last Taken 04/06/21 08:24] sennosides [senna] 8.6 mg PO DAILY 04/06/21 [History Last Taken 04/06/21 08:24] tramadol 50 mg PO Q8H PRN 04/06/21 [History Last Taken 04/06/21 04:49] Allergy/AdvReac Type Severity Reaction Status Date / Time No Known Allergies Allergy Verified 04/06/21 10:26 Surgical History No pertinent past surgical history Social History Smoking Status: Former smoker Tobacco: How many years used: 9 ROS Constitutional Constitutional: Denies chills, fatigue, malaise or weakness Eyes Eyes: Denies blurry vision, discharge from eye(s) or double vision ENT HEENT: Denies abnormal hearing or hearing loss Cardiovascular Cardiovascular: Denies chest pain, dyspnea on exertion, lightheadedness, paroxysmal nocturnal dyspnea or rapid heart rate Respiratory/Chest Respiratory/Chest: Denies cough, dyspnea, shortness of breath at rest or shortness of breath with exertion Gastrointestinal Gastrointestinal: Denies abdominal pain, diarrhea, nausea or vomiting Neurologic Neurologic: Reports tremor(s); Denies abnormal gait, abnormal speech, dizziness or focal weakness Psychiatric Psychiatric: Denies anxiety or depression Endocrine Endocrinology: Denies change in body appearance Vital Signs Vital Signs Vital Signs: 04/06/21 10:27 04/06/21 10:37 04/06/21 10:58 Temperature 97.8 F Temperature Source Temporal Pulse Rate 86 Respiratory Rate 18 Respiratory Effort Short of Breath Respiratory Pattern Normal Blood Pressure 179/84 H Blood Pressure Mean 115 Pulse Ox 96 Oxygen Delivery Method Room Air Room Air 04/06/21 11:03 04/06/21 11:08 04/06/21 11:11 Temperature Temperature Source Pulse Rate 86 97 95 Respiratory Rate 17 16 16 Respiratory Effort Respiratory Pattern Blood Pressure 152/86 H 152/86 H 152/86 H Blood Pressure Mean 108 108 108 Pulse Ox 94 93 94 Oxygen Delivery Method Room Air Room Air Room Air 04/06/21 11:30 04/06/21 12:00 Temperature Temperature Source Pulse Rate 81 82 Respiratory Rate 17 16 Respiratory Effort Respiratory Pattern Blood Pressure 155/98 H 172/82 H Blood Pressure Mean 117 112 Pulse Ox 94 94 Oxygen Delivery Method Room Air Room Air Physical Exam Const alert and oriented x3 General Appearance: cooperative HEENT normocephalic and head/scalp atraumatic Eyes PERRL, EOMs intact bilaterally and conjunctivae normal Neck no lymphadenopathy and supple Resp Resp Narrative: has bilateral wheezing in all lung garrett, which son says is chronic. Auscultation: wheezes Cardio regular rate, regular rhythm, S1 normal heart sound, S2 normal heart sound and no murmurs GI normal to inspection, nondistended, normoactive bowel sounds, soft to palpation, non-tender and non-distended Extremity normal to inspection and full ROM Skin no rashes or lesions noted and no wounds Neuro oriented x3 and CN's II-XII intact bilaterally Neuro Narrative: patient has very severe tremors of UEs and LEs, unable to even hold a cup of water without spilling it; has choking with attempts to drink water. Moves all lower limbs spontaneously. No facial droop noted. Sensorium / Orientation: awake Psych affect normal Lab / Micro Data Result Diagrams: 04/06/21 11:02 04/06/21 11:02 Labs: Laboratory Results - last 24 hr 04/06/21 04/06/21 04/06/21 11:01 11:02 11:02 WBC 8.9 RBC 3.99 L Hgb 12.5 L Hct 39.3 L MCV 98.5 H MCH 31.3 MCHC 31.8 L RDW Std Deviation 46.4 H RDW Coeff of Praneeth 12.7 Plt Count 196 MPV 10.2 Immature Gran % (Auto) 0.400 Neut % (Auto) 59.5 Lymph % (Auto) 26.6 [place] % (Auto) 11.0 H Eos % (Auto) 2.1 Baso % (Auto) 0.4 Absolute Neuts (auto) 5.3 Absolute Lymphs (auto) 2.37 Nucleated RBC % 0 PT 13.6 INR 1.1 APTT 30.1 Sodium Potassium Chloride Carbon Dioxide Anion Gap BUN Creatinine Estim Creat Clear Calc Est GFR (MDRD) Af Amer Est GFR (MDRD) Non-Af BUN/Creatinine Ratio Glucose Calcium Troponin I Urine Color Urine Clarity Urine pH Ur Specific [place] Urine Protein Urine Glucose (UA) Urine Ketones Urine Occult Blood Urine Nitrite Urine Bilirubin Urine Urobilinogen Ur Leukocyte Esterase Urine RBC Urine WBC Ur Squamous Epith Cells Urine Bacteria Urine Mucus POC Glucose 104 04/06/21 04/06/21 11:02 12:25 WBC RBC Hgb Hct MCV MCH MCHC RDW Std Deviation RDW Coeff of Praneeth Plt Count MPV Immature Gran % (Auto) Neut % (Auto) Lymph % (Auto) [place] % (Auto) Eos % (Auto) Baso % (Auto) Absolute Neuts (auto) Absolute Lymphs (auto) Nucleated RBC % PT INR APTT Sodium 141 Potassium 3.6 Chloride 102 Carbon Dioxide 34.0 H Anion Gap 5 BUN 29 H Creatinine 1.22 Estim Creat Clear Calc 49.47 Est GFR (MDRD) Af Amer 73 Est GFR (MDRD) Non-Af 60 BUN/Creatinine Ratio 23.8 H Glucose 96 Calcium 8.2 L Troponin I < 0.015 Urine Color Straw Urine Clarity Clear Urine pH 7.0 Ur Specific [place] 1.005 Urine Protein Negative Urine Glucose (UA) Normal Urine Ketones Negative Urine Occult Blood Negative Urine Nitrite Negative Urine Bilirubin Negative Urine Urobilinogen Normal Ur Leukocyte Esterase 25 H Urine RBC 0 SEEN Urine WBC 0-5 SEEN Ur Squamous Epith Cells 0-5 SEEN Urine Bacteria 0 SEEN Urine Mucus 0 SEEN POC Glucose Radiology Impression Head/Neck CTA 04/06/21 10:45 IMPRESSION: High-grade stenosis at the origins of the right and left internal carotid arteries. N.B. : The above information has been verbally conveyed by Malik Sanchez MD to Osito Lopez on 04/06/2021 11:24:15 (ET). Electronically Signed: Malik Sanchez MD at 11:25 EDT , Service support , ADDENDUM: 04/06/21 1132 IMPRESSION: High-grade stenosis at the origins of the right and left internal carotid arteries. N.B. : The above information has been verbally conveyed by Malik Sanchez MD to Osito Lopez on 04/06/2021 11:24:15 (ET). Electronically Signed: Malik Sanchez MD at 11:25 EDT , Service support , Brain CT 04/06/21 10:50 IMPRESSION: Chronic involutional changes of the brain. N.B. : The above information has been verbally conveyed by Malik Sanchez MD to Osito Lopez on 04/06/2021 11:05:25 (ET). Electronically Signed: Malik Sanchez MD at 11:06 EDT , Service support , ADDENDUM: 04/06/21 1113 IMPRESSION: Chronic involutional changes of the brain. N.B. : The above information has been verbally conveyed by Malik Sacnhez MD to Osito John on 04/06/2021 11:05:25 (ET). Electronically Signed: Malik Sanchez MD at 11:06 EDT , Service support , Assessment & Plan Assessment/Plan (1) Tremors of nervous system: (2) Myoclonic jerking: (3) TIA (transient ischemic attack): PLAN: #Generalised myoclonic jerks * Family concerned about possible stroke. Patient has such extensive jerking a nd tremors of his extremities that he is not even able to hold a cup well epigastric area he drinks water. * CT of the brain was negative for stroke and CTA of the head and neck * admit to PCU with telemetry * get MRI of the brain * start aspirin * 2D echo. check ammonia level * consult neurology * get speech therapy. Fall precautions. * this could be a worsening of his Parkinson's disease as well; son says he thinks patient takes his medications but cannot be certain. * continue memantine * electrolytes are WNL. UA showed no evidence of UTI * fall precautions * * #History of parkinson's disease: on memantine # #History of chronc HfpEF: stable. not in exacerbation. on lasix 40mg daily #History of dementia: stable. # Hypertension: on lisinopril and metoprolol. #Depression: on mirtazapine. #BPH: on flomax #GERD: on PPI #History of afib: * rate controlled. * on metoprolol. * Not anticoagulated, likely due to history of dementia and Parkinson's disease. * DVT prophylaxis: lovenox CODE STATUS: Full code * I discussed CODE STATUS with patient and son and clarified the difference between full code, DNR CCA and DNR CCA. Patient elects to be full code. Visit Charges OBSV E&M: 59576 Initial observation care L3 Procedures Hospitalists Procedures: 52413 Advncd Care Plan 30 Min
[2021-04-06] MEDS: 0.9% Normal Saline 1,000 ML 999 ML IV (13:40)
[2021-04-06] MEDS: Aspirin 325 MG Tablet PO (13:53)
--- NOTE | 2021-04-06 14:10 | MRI_ITS ---
STUDY: MRI BRAIN WITHOUT CONTRAST REASON FOR EXAM: Male, 86 years old. acute metabolic encephalopathy TECHNIQUE: Standardized multiplanar fat and water weighted pulse sequences were obtained. COMPARISON: CT of the brain 04/06/2021 FINDINGS: Moderate atrophy and mild to moderate periventricular white matter ischemic change without mass effect or restricted diffusion. There appears to be focal gliosis in left frontal parietal region which may be on the basis of subacute ischemic changes or nonspecific cerebritis. Normal bilateral basal ganglia. Normal thalami. There is no extra-axial fluid accumulation. Normal flow voids within the major intracranial circulation suggesting patency by spin echo criteria. Normal sella turcica, pituitary gland, infundibular stalk, optic chiasm and hypothalamus. Normal tectal plate and pineal gland. Normal midbrain, arjun and medulla. Normal cerebellum. Normal basal cisterns. Normal bilateral temporal bones. Normal bilateral internal auditory canals. No demonstrated orbital abnormality, within the constraints of a routine brain study. Normal visualized paranasal sinuses. Normal calvarium and skull base. Normal visualized soft tissue structures. Normal visualized upper cervical spine. MRI/Brain without Contrast IMPRESSION: Atrophy and mild to moderate periventricular white matter ischemic change without evidence for acute infarct.. Focal gliosis in left frontal parietal region possibly on the basis of subacute ischemic changes or nonspecific cerebritis. Clinical correlation is recommended Electronically Signed: Graeme Manzo MD at 16:25 EDT , Service support ,
--- NOTE | 2021-04-06 14:12 | ECHOD_ITS ---
Reason For Study: TIA/CVA Procedure This was a 2D Doppler, Color Flow transthoracic echocardiogram. Exam performed portable in patient room. Left Ventricle Normal LV size. Left ventricular systolic function is normal. The estimated ejection fraction is 55 %. Stage 3 diastolic dysfunction. No regional wall motion abnormalities noted. Right Ventricle Normal RV size. Normal systolic function. Atria The left atrium is mildly enlarged. Normal right atrium. Bubble contrast study negative for right to left interatrial shunt. Mitral Valve Normal mitral valve. Mild (1+) eccentric mitral valve insufficiency. Tricuspid Valve Normal tricuspid valve. Mild (1+) tricuspid valve insufficiency. Pulmonary artery systolic pressure is 38 mmHg. Aortic Valve Trisinus/trileaflet aortic valve. Mild-Moderate (1-2+) aortic valve insufficiency. Pulmonic Valve Normal pulmonic valve. Great Vessels Normal aortic root. The pulmonary artery is normal size. Normal inferior vena cava. Pericardium/Pleural No pericardial effusion. Medication Performed a rapid injection of agitated mix of 9 cc saline and 1cc air to assess for atrial septal defect. MMode/2D Measurements & Calculations LVIDd: 4.7 cm IVSd: 1.2 cm Ao root diam: 3.9 cm LVIDs: 3.0 cm LVPWd: 1.3 cm RVDd: 2.6 cm FS: 36.2 % LAV(MOD-bp): 80.6 ml LA A4 area: 22.3 cm2 LA dimension(2D): 3.7 cm LAV(MOD-bp) Indexed: 36.9 ml/m2 LAV(MOD-sp2): 77.7 ml LAV(MOD-sp4): 77.0 ml RA A4 area: 14.7 cm2 Time Measurements MV dec time: 0.14 sec Doppler Measurements & Calculations MV E max chinedu: 89.2 cm/sec Lat Peak E' Chinedu: 11.7 cm/sec Med Peak E' Chinedu: 8.9 cm/sec MV A max chinedu: 35.2 cm/sec E/E' lat: 7.6 E/E' med: 10.0 MV E/A: 2.5 Ao V2 max: 148.1 cm/sec AI max chinedu: 491.4 cm/sec LV V1 max: 105.0 cm/sec Ao max P.8 mmHg AI max P.8 mmHg LV V1 max P.4 mmHg Ao V2 mean: 99.6 cm/sec AI dec slope: 372.9 cm/sec2 LV V1 mean P.1 mmHg Ao mean P.5 mmHg AI P1/2t: 386.0 msec LV V1 mean: 68.4 cm/sec Ao V2 VTI: 24.9 cm LV V1 VTI: 17.6 cm PA V2 max: 71.5 cm/sec TR max chinedu: 290.4 cm/sec TR max P.7 mmHg ECHO/Echo Complete Interpretation Summary Normal LV size. Left ventricular systolic function is normal. The estimated ejection fraction is 55 %. Stage 3 diastolic dysfunction. Mild-Moderate (1-2+) aortic valve insufficiency. Bubble contrast study negative for right to left interatrial shunt. Ordering Physician: Kristin Holly Referring Physician: Pawel Parra Performed By: Leticia Husain RDCS, RVT
--- NOTE | 2021-04-06 15:05 | NURSING ---
MRI here for bead picker. MRI questionnaire not filled out. Lorri in MRI notified. Lorri stated she will fill out in MRI dept.
[2021-04-06] MEDS: 0.9% Normal Saline 1,000 ML 125 ML IV ×2 (16:17→23:31)
[2021-04-06 16:46] LABS: AST(SGOT) 10 U/L (15-37); Alanine Aminotransfer ALT/SGPT 14 U/L (16-61); Albumin, Serum 2.9 g/dL (3.2-5.0); Alkaline Phosphatase 53 U/L (45-117); Bilirubin, Direct 0.14 mg/dL (0.00-0.30); Protein, Total 6.9 g/dL (6.4-8.2)
--- NOTE | 2021-04-06 17:06 | TELEMED_ITS ---
[facility] has confirmed receipt of a request for visit. This document confirms receipt of the order initiating the consult. To find the results of the consultation, please view the patient's reports for the scanned Telemed Consult.
[2021-04-06] MEDS: Ipratropium/Albuterol Sulfate 3 ML AMPUL.NEB INHALATION (18:36)
[2021-04-06] MEDS: MELATONIN 3 MG TABLET PO (20:11)
[2021-04-06] MEDS: Gabapentin 100 MG Capsule PO (20:11)
[2021-04-06] MEDS: Memantine Hydrochloride 10 MG Tablet PO (20:11)
[2021-04-06] MEDS: Mirtazapine 15 MG Tablet PO (20:11)
[2021-04-06] MEDS: LORazepam 0.5 MG Tablet PO (20:11)
--- NOTE | 2021-04-06 20:13 | NURSING ---
pt keeps taking hear monitor off. Pt took his goqn off. Pt very restless. tv put on but didnt help. ativan given
[2021-04-07] VITALS (11 sets, daily range): BP systolic 113–176; BP diastolic 71–98; PULSE 76–107; RESP 16–20; TEMP 36.3–37; O2SAT 92–98
[2021-04-07 06:56] LABS: Absolute Lymphocyte Count 2.54 X10^3/uL (0.83-4.51); Absolute Neutrophil Count 3.6 X10^3/uL (2.0-7.7); Basophil# 0.04 X10^3/uL; Basophil% 0.6 % (0-1); Eosinophil# 0.21 X10^3/uL; Eosinophils% 2.9 % (0-5); Hematocrit 41.6 % (40-54); Hemoglobin 13.3 g/dL (13.0-16.5); Lymphocyte # 2.54 X10^3/ul (0.83-4.51); Lymphocyte % 35.4 % (19-41); Mean Corpuscular Hgb 31.3 pg (27.0-32.0); Mean Corpuscular Volume 97.9 fL (80-94); Mean Platelet Vol. 10.5 fl (6.2-12.0); Monocyte# 0.77 X10^3/uL; Monocyte% 10.7 % (0-10); NRBC Flagged by Analyzer 0 % (0-5); Neutrophil % 50.1 % (47-70); Platelet Count 198 K/mm3 (150-450); RBC Distribution Width CV 12.8 % (11.6-14.6); Red Blood Count 4.25 M/mm3 (4.6-6.2); White Blood Count 7.2 K/mm3 (4.4-11.0)
[2021-04-07 07:21] LABS: Anion Gap 6 (5-15); BUN 21 mg/dL (7-18); BUN/Creat Ratio 18.8 RATIO (10-20); Calcium,Total 8.3 mg/dL (8.5-10.1); Chloride 107 mmol/L (98-107); Cholesterol 176 mg/dL (200); Creatinine, Serum 1.12 mg/dL (0.70-1.30); EST Glomerular Filtration Rate 66 mL/min (>60); Est Glom Filt Rate - Afr Amer 80 mL/min (>60); Estimated Creatinine Clearance 53.89 ml/min; Glucose 100 mg/dL (74-106); High Density Lipoprotein 44 mg/dL; Potassium 3.6 mmol/L (3.5-5.1); Sodium Level 142 mmol/L (136-145); Triglycerides 143 mg/dL; Very Low Density Lipoprotein 29 mg/dL (5-40)
[2021-04-07] MEDS: Ipratropium/Albuterol Sulfate 3 ML AMPUL.NEB INHALATION ×3 (07:21→19:20)
--- NOTE | 2021-04-07 08:41 | CASEMGMT ---
Patient is from [facility]. GALILEO faxed updates to [facility]. Green sheet will be placed on patient's chart in the event he is ready for discharge over the weekend. Plan: d/c back to [facility]ie ORELLANA
[2021-04-07] MEDS: Fluticasone 0.05% 1 SPRAY NASAL.SRY 2 SPRAY NASAL (08:58)
[2021-04-07] MEDS: Polyethylene Glycol 3350 17 GM PACKET PO (08:59)
[2021-04-07] MEDS: Enoxaparin 40 MG/0.4 ML Syringe SC (08:59)
[2021-04-07] MEDS: Memantine Hydrochloride 10 MG Tablet PO (08:59)
[2021-04-07] MEDS: Aspirin E.C. 81 MG Tablet PO (08:59)
[2021-04-07] MEDS: Lisinopril 20 MG Tablet PO (08:59)
[2021-04-07] MEDS: Multivitamins,Therapeutic Tablet 1 TABLET PO (08:59)
[2021-04-07] MEDS: Furosemide 40 MG Tablet PO (08:59)
[2021-04-07] MEDS: Paroxetine 20 MG Tablet 40 MG PO (08:59)
[2021-04-07] MEDS: Senna Tablet 1 TABLET PO (08:59)
[2021-04-07] MEDS: Pantoprazole Sodium 40 MG Tablet PO (08:59)
[2021-04-07] MEDS: Tamsulosin HCl 0.4 MG Capsule PO (08:59)
--- NOTE | 2021-04-07 13:54 | PCM.DC.SUM ---
Providers Date of Admission: 04/06/21 Primary Care Physician: Dr. Pawel Parra MD Reason For Visit: TIA, ACUTE METABOLIC ENCEPHALOPATHY Diagnosis Discharge Diagnosis (1) Tremors of nervous system: Status: Acute Code(s): R25.1 - Tremor, unspecified (2) Myoclonic jerking: Status: Acute Code(s): G25.3 - Myoclonus (3) TIA (transient ischemic attack): Status: Acute Code(s): G45.9 - Transient cerebral ischemic attack, unspecified (4) Dementia associated with Parkinson's disease: Status: Acute Code(s): G20 - Parkinson's disease; F02.80 - Dementia in other diseases classified elsewhere without behavioral disturbance Medications at Discharge Home Medications aspirin 81 mg tablet,delayed release 81 mg PO DAILY 05/19/20 fluticasone propionate 50 mcg/actuation nasal spray,suspension 2 spray INTRANASAL DAILY 05/19/20 ipratropium 20 mcg-albuterol 100 mcg/actuation mist for inhalation 1 puff INHALATION 4X/DAY 05/19/20 lorazepam 0.5 mg tablet 0.5 mg PO DAILY PRN 05/19/20 melatonin 3 mg tablet 3 mg PO QHS 05/19/20 memantine 10 mg tablet 10 mg PO BID tab 05/19/20 mirtazapine 15 mg tablet 15 mg PO QHS 05/19/20 omeprazole 40 mg capsule,delayed release 40 mg PO DAILY 05/19/20 paroxetine HCl 40 mg tablet 40 mg PO DAILY 05/19/20 tamsulosin 0.4 mg capsule 0.4 mg PO DAILY 05/19/20 lisinopril 20 mg PO DAILY 12/23/20 multivitamin with minerals 1 tab PO DAILY 12/23/20 polyethylene glycol 3350 17 gm PO DAILY 12/23/20 Boost VHC 1 ea PO TID 04/06/21 acetaminophen [Tylenol] 325 mg PO TID PRN 04/06/21 furosemide 40 mg PO DAILY 04/06/21 gabapentin 100 mg PO QHS 04/06/21 metoprolol tartrate 12.5 mg PO BID 04/06/21 sennosides [senna] 8.6 mg PO DAILY 04/06/21 tramadol 50 mg PO Q8H PRN 04/06/21 atorvastatin 40 mg PO DAILY #30 tab 05/07/21 carbidopa-levodopa 0.5 tab PO DAILY@0730 #30 tab 04/07/21 Hospital Course Operations None Procedures None Summary of Care Provided Minutes Spent on Discharge: 45 Hospital Course: ANDER ESCOBAR, is a 86 M with an extensive PMH as outlined who was admitted via the ED on 04/06/2021 with a complaint of complaint of weakness. His last knewn well awas at 9pm last night, and started having some shakiness of his extremities. He was noted to be having more shakiness of his extremities, and spilled water. His son was by his bedside went to see him in the assisted today and noticed that his father was much more tremulous than usual so the decided to bring him into the hospital. He has not noticed any focal deficit but notes that his father has been having difficulty swallowing. He denied any fever, chills, palpitations, dizziness, nausea vomiting or diarrhea. Review of systems otherwise negative. Due to concerns about a possible stroke, he was brought in to the ED. He was also noted to have some expressive aphasia, so a stroke alert was called. Neurology was consulted and thought his symptoms could be due to an extension of his dementia and Parkinson's disease. In the ED, vitals showed BP of 172/82, AK of 82, RR of 16 and he was saturating at 94% on room air. CBC showed Hb of 12.5, and platelets of 196. BMP showed Cr of 1.22. UA showed wbc of 0-5. CT of the brain was negative for stroke and showed only chronic involutional changes. CTA of the head and neck showed extensive atherosclerotic plaque formation of the origin of the right and left internal carotid arteries with an estimated stenosis of greater than 70%. He was admitted to be managed for increased tremors and altered mental status, to rule out a stroke. HE had a brain MRI which was negative for stroke. [facility] neurology was consulted, and per neurology, his symptoms of worsening tremors and confusion were likely due to a progresion of his dementia, which was likely Lewy Body Dementia. Neurology recommended starting half dose of Sinemet 25/100 daily before meals, and to titrate the dose upwards after a week to half a dose twice daily before meals. His lipid panel showed total cholesterol 176 with LDL of 103 and HDL of 44. UA showed no evidence of UTI. Patient remained stable and on 04/07/2021, his tremors are improved significantly and he was able to drink fluids and eat without spilling from tremors. Patient was discharged back to his assisted on 04/07/2021. He was discharged with a prescription for half tablet of Sinemet 25/100 daily before meals. This will be titrated upwards as stated above. He is to follow-up with vascular surgery also on account of bilateral carotid stenosis and also to follow-up with neurology on outpatient basis. Patient was seen and examined prior to discharge. He had no complaints and felt well. He felt his tremors are improved. Mediastinum is otherwise negative. Labs and vital reviewed. Medication reviewed and reconciled. He was also discharged with a script for PO atorvastatin 40mg qhs. Physical Exam Const alert and oriented x3 General Appearance: cooperative and comfortable Orientation / Consciousness: awake Exam Limitations: no limitations HEENT normocephalic and head/scalp atraumatic Eyes PERRL, EOMs intact bilaterally and conjunctivae normal Neck no lymphadenopathy and supple Resp Resp Narrative: has bilateral wheezing in all lung garrett, which son says is chronic. Auscultation: wheezes Cardio regular rate, regular rhythm, S1 normal heart sound, S2 normal heart sound and no murmurs GI normal to inspection, nondistended, normoactive bowel sounds, soft to palpation, non-tender and non-distended Extremity normal to inspection and full ROM Skin no rashes or lesions noted and no wounds Neuro oriented x3 and CN's II-XII intact bilaterally Neuro Narrative: patient had minimal tremors of extremities today Sensorium / Orientation: awake Psych affect normal ABG / Lab / Microbiology Data Result Diagrams: 04/07/21 06:18 04/07/21 06:18 Laboratory: Laboratory Results - last 24 hr 04/06/21 04/06/21 04/07/21 11:02 17:01 06:18 WBC 7.2 RBC 4.25 L Hgb 13.3 Hct 41.6 MCV 97.9 H MCH 31.3 MCHC 32.0 RDW Std Deviation 46.0 H RDW Coeff of Praneeth 12.8 Plt Count 198 MPV 10.5 Immature Gran % (Auto) 0.300 Neut % (Auto) 50.1 Lymph % (Auto) 35.4 [place] % (Auto) 10.7 H Eos % (Auto) 2.9 Baso % (Auto) 0.6 Absolute Neuts (auto) 3.6 Absolute Lymphs (auto) 2.54 Nucleated RBC % 0 Sodium Potassium Chloride Carbon Dioxide Anion Gap BUN Creatinine Estim Creat Clear Calc Est GFR (MDRD) Af Amer Est GFR (MDRD) Non-Af BUN/Creatinine Ratio Glucose Calcium Total Bilirubin 0.60 Direct Bilirubin 0.14 AST 10 L ALT 14 L Alkaline Phosphatase 53 Ammonia 23.0 Total Protein 6.9 Albumin 2.9 L Globulin 4.0 Triglycerides Cholesterol LDL Cholesterol VLDL Cholesterol HDL Cholesterol 04/07/21 06:18 WBC RBC Hgb Hct MCV MCH MCHC RDW Std Deviation RDW Coeff of Praneeth Plt Count MPV Immature Gran % (Auto) Neut % (Auto) Lymph % (Auto) [place] % (Auto) Eos % (Auto) Baso % (Auto) Absolute Neuts (auto) Absolute Lymphs (auto) Nucleated RBC % Sodium 142 Potassium 3.6 Chloride 107 Carbon Dioxide 29.0 Anion Gap 6 BUN 21 H Creatinine 1.12 Estim Creat Clear Calc 53.89 Est GFR (MDRD) Af Amer 80 Est GFR (MDRD) Non-Af 66 BUN/Creatinine Ratio 18.8 Glucose 100 Calcium 8.3 L Total Bilirubin Direct Bilirubin AST ALT Alkaline Phosphatase Ammonia Total Protein Albumin Globulin Triglycerides 143 Cholesterol 176 LDL Cholesterol 103 VLDL Cholesterol 29 HDL Cholesterol 44 Radiography Diagnostic Testing: Radiology Impression Brain MRI 04/06/21 14:10 IMPRESSION: Atrophy and mild to moderate periventricular white matter ischemic change without evidence for acute infarct.. Focal gliosis in left frontal parietal region possibly on the basis of subacute ischemic changes or nonspecific cerebritis. Clinical correlation is recommended Electronically Signed: Graeme Manzo MD at 16:25 EDT , Service support , D/C Instructions Discharge Diet: Low fat / Low cholesterol Discharge Activity: Return to Normal Activity Weight Bearing Status: Weight bearing as tolerated Call your doctor if you observe: Fever of 101 or Higher, Numbness or Tingling and Dizziness Meaningful Use Info Meaningful Use Diagnoses (Choose all that apply): None applicable Discharge Plan Admission Admit Date/Time: 04/06/21 13:19 Primary Reason for Your Visit: tremors, altered mental status Attending Provider: Kristin Holly Primary Care Provider: Pawel Parra Discharge Orders/Prescriptions Prescriptions: New carbidopa-levodopa 25-100 mg Tablet 0.5 tab PO DAILY@0730 Qty: 30 RF: 0 atorvastatin 40 mg tablet 40 mg PO DAILY Qty: 30 RF: 1 Continued aspirin 81 mg tablet,delayed release (DR/EC) 81 mg PO DAILY RF: 0 Combivent Respimat 20-100 mcg/actuation mist 1 puff INHALATION 4X/DAY RF: 0 fluticasone propionate [Flonase Allergy Relief] 50 mcg/actuation spray,suspension 2 spray INTRANASAL DAILY RF: 0 lorazepam 0.5 mg tablet 0.5 mg PO DAILY PRN (Reason: Anxiety) RF: 0 melatonin 3 mg tablet 3 mg PO QHS RF: 0 memantine 10 mg tablet 10 mg PO BID RF: 0 omeprazole 40 mg capsule,delayed release(DR/EC) 40 mg PO DAILY RF: 0 paroxetine HCl 40 mg tablet 40 mg PO DAILY RF: 0 mirtazapine [Remeron] 15 mg tablet 15 mg PO QHS RF: 0 tamsulosin 0.4 mg capsule 0.4 mg PO DAILY RF: 0 polyethylene glycol 3350 17 GM packet 17 gm PO DAILY RF: 0 lisinopril 20 MG tablet 20 mg PO DAILY RF: 0 multivitamin with minerals 1 EACH tablet 1 tab PO DAILY RF: 0 furosemide 40 mg Tablet 40 mg PO DAILY RF: 0 sennosides [senna] 8.6 mg Tablet 8.6 mg PO DAILY RF: 0 acetaminophen [Tylenol] 325 mg Tablet 325 mg PO TID PRN (Reason: Pain) RF: 0 tramadol 50 mg Tablet 50 mg PO Q8H PRN (Reason: Pain) RF: 0 gabapentin 100 mg Capsule 100 mg PO QHS RF: 0 metoprolol tartrate 25 mg Tablet 12.5 mg PO BID RF: 0 Boost VHC 0.09-2.25 gram-kcal/mL Liquid 1 ea PO TID RF: 0 Referrals / Follow Up: Caesar Salcedo MD [STAFF PHYSICIAN] - Within 1 Month Pawel Parra MD [Primary Care Provider] - In 1 Week Nahum Rice MD [STAFF PHYSICIAN] - Within 2 Weeks Disposition Disposition (needs filled in before D/C Order can be placed[facility] Visit Charges OBSV E&M: 20991 Observation care discharge
--- NOTE | 2021-04-07 14:04 | CASEMGMT ---
SW did not complete a PHQ 9 with patient as he did not have a Stroke or TIA. Sadie Marcos SCENIC DESIGNER ESTEBAN
--- NOTE | 2021-04-07 14:27 | CASEMGMT ---
STACEY BARRERA NOTE: Call placed to pt's daughter, Beatriz Meredith form explained re: Observation status for treatment of TIA and acute metabolic encephalopathy. Explained hospitalization will be paid per insurance policy for Outpatient billing and condition will continue to be evaluated for Inpt necessity. Also let her know that [facility] sends paper in the billing packet with their phone number if questions arise. Dtr verbalizes understanding and does not have any questions. Note placed on form that phone signature obtained and copy made and placed in chart, and original placed in pt's folder in his room. Viri made aware pt is being discharged back to [facility] today. She asks that RN contact her when pt leaves [facility] so she can meet her father @ the [facility] when he arrives. RN, Yarelis, made aware of same. Loren MACHADO RN CM
--- NOTE | 2021-04-07 14:28 | PCM.TXEXTCAR ---
Diet 04/06/21 16:44 Diet: Regular - General Food consistency:: Easy to Chew Liquid Consistency:: Regular/Thin Is pt able to select menu?: Yes Diet Comments: 1:1 supervised with assistance feeding Routine Orders/Code Status Enema Type: Fleetz Enema Frequency: Daily PRN Suppository Type: Dulcolax 10mg Suppository Frequency: Daily PRN O2 Frequency: PRN Keep PO Greater than or Equal to (%): 90 Therapies Weight Bearing: Weight bearing as tolerated Physical Therapy: Eval and Treat Occupational Therapy: Eval and Treat Speech Therapy: Eval and Treat Problem/Diagnosis (1) Tremors of nervous system: Status: Acute (2) Myoclonic jerking: Status: Acute (3) TIA (transient ischemic attack): Status: Acute (4) Dementia associated with Parkinson's disease: Status: Acute Allergies/Procedures Done in Hospital Allergies No Known Allergies Allergy (Verified 04/06/21 10:26) Procedures: None Type of Care/Length of Stay Estimated LOS: More Than 30 Days Type of Care Needed: Skilled Rehab Potential: Fair Prognosis: Fair Additional Orders/Day of Discharge Day of Discharge: 04/07/21 Dietary and Speech Recommendations Speech Linguistic Eval Summary: Pt alert and agreeable to ST. Pt with initial confusion believing he was at home. In addition, pt unable to provide reason why he may be at the hospital. Pt oriented to name and . Pt reoriented to location and reason for admission. 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 Pt with word finding deficits in conversation. Pt able to follow verbal directions with repetition. Follow Up Care Please follow up with your Primary Care Physician in: 1-2 weeks Please Follow Up With: Dr Nahum Rice When: 1-2 weeks Please Follow Up With: Caesar Salcedo When: within one month for carotid stenosis Discharge Plan Admission Admit Date/Time: 04/06/21 13:19 Primary Reason for Your Visit: tremors, altered mental status Attending Provider: Kristin Holly Primary Care Provider: Pawel Parra Discharge Orders/Prescriptions Prescriptions: New carbidopa-levodopa 25-100 mg Tablet 0.5 tab PO DAILY@0730 Qty: 30 RF: 0 atorvastatin 40 mg tablet 40 mg PO DAILY Qty: 30 RF: 1 Continued aspirin 81 mg tablet,delayed release (DR/EC) 81 mg PO DAILY RF: 0 Combivent Respimat 20-100 mcg/actuation mist 1 puff INHALATION 4X/DAY RF: 0 fluticasone propionate [Flonase Allergy Relief] 50 mcg/actuation spray,suspension 2 spray INTRANASAL DAILY RF: 0 lorazepam 0.5 mg tablet 0.5 mg PO DAILY PRN (Reason: Anxiety) RF: 0 melatonin 3 mg tablet 3 mg PO QHS RF: 0 memantine 10 mg tablet 10 mg PO BID RF: 0 omeprazole 40 mg capsule,delayed release(DR/EC) 40 mg PO DAILY RF: 0 paroxetine HCl 40 mg tablet 40 mg PO DAILY RF: 0 mirtazapine [Remeron] 15 mg tablet 15 mg PO QHS RF: 0 tamsulosin 0.4 mg capsule 0.4 mg PO DAILY RF: 0 polyethylene glycol 3350 17 GM packet 17 gm PO DAILY RF: 0 lisinopril 20 MG tablet 20 mg PO DAILY RF: 0 multivitamin with minerals 1 EACH tablet 1 tab PO DAILY RF: 0 furosemide 40 mg Tablet 40 mg PO DAILY RF: 0 sennosides [senna] 8.6 mg Tablet 8.6 mg PO DAILY RF: 0 acetaminophen [Tylenol] 325 mg Tablet 325 mg PO TID PRN (Reason: Pain) RF: 0 tramadol 50 mg Tablet 50 mg PO Q8H PRN (Reason: Pain) RF: 0 gabapentin 100 mg Capsule 100 mg PO QHS RF: 0 metoprolol tartrate 25 mg Tablet 12.5 mg PO BID RF: 0 Boost VHC 0.09-2.25 gram-kcal/mL Liquid 1 ea PO TID RF: 0 Referrals / Follow Up: Caesar Salcedo MD [STAFF PHYSICIAN] - Within 1 Month Pawel Parra MD [Primary Care Provider] - In 1 Week Nahum Rice MD [STAFF PHYSICIAN] - Within 2 Weeks Disposition Disposition (needs filled in before D/C Order can be placed): [facility] Living Facility
--- NOTE | 2021-04-07 16:53 | NURSING ---
Report called to [facility] nurse Collin.
== END 2021-04-07 20:00 | disposition skilled nursing facility (03) ==
LOC: ED 13:21 → PCU 13:30
PROVIDERS: Admitting Provider Student in an Organized Health Care Education/Training Program; Emergency Provider Student in an Organized Health Care Education/Training Program; PCP Family Medicine; Visit Provider Student in an Organized Health Care Education/Training Program
DX: G45.9 Transient cerebral ischemic attack, unspecified (principal); G31.83 Neurocognitive disorder with Lewy bodies; F02.80 Dementia in other diseases classified elsewhere, unspecified severity, without behavioral disturbance, psychotic disturbance, mood disturbance, and anxiety; R29.818 Other symptoms and signs involving the nervous system; J44.9 Chronic obstructive pulmonary disease, unspecified; K21.9 Gastro-esophageal reflux disease without esophagitis; I11.0 Hypertensive heart disease with heart failure; I73.9 Peripheral vascular disease, unspecified; E66.9 Obesity, unspecified; F41.1 Generalized anxiety disorder; F32.9 Major depressive disorder, single episode, unspecified; H35.033 Hypertensive retinopathy, bilateral; G25.3 Myoclonus; I50.32 Chronic diastolic (congestive) heart failure; N40.0 Benign prostatic hyperplasia without lower urinary tract symptoms; R47.01 Aphasia; R29.706 NIHSS score 6; I48.91 Unspecified atrial fibrillation; R29.6 Repeated falls; Z79.899 Other long term (current) drug therapy; Z79.82 Long term (current) use of aspirin; Z96.1 Presence of intraocular lens; Z79.51 Long term (current) use of inhaled steroids; Z87.891 Personal history of nicotine dependence
CPT/HCPCS: 36415; 70450; 70496; 70498; 70551; 71045; 80048; 80061; 80076; 81001; 82140; 82962; 84484; 85025; 85610; 85730; 92523; 92526; 92610; 93005; 93306; 94640; 94762; 96360; 96361; 96372; 97162; 97166; 99218; 99285; J7030; Q9967; A4216; G0378

== ENCOUNTER 2022-03-12 09:26 | Outpatient (CLI) | payer MEDICARE, MEDICAID, SELFPAY ==
--- NOTE | 2022-03-12 09:36 | MRI_ITS ---
EXAM: MR CERVICAL SPINE WITHOUT INTRAVENOUS CONTRAST CLINICAL INDICATION: gait disorder, neck pain Technologist Notes Increase in tremors, neck pain TECHNIQUE: Multiplanar and multisequence MR images of the cervical spine without intravenous contrast were performed. This report was created using [employer] report True Fit technology. COMPARISON: None. FINDINGS: VERTEBRAE: There is straightening of the normal cervical lordosis. SPINAL CORD: Unremarkable in signal and morphology. SOFT TISSUES: Unremarkable. No prevertebral soft tissue swelling. LYMPH NODES: Unremarkable. There is no cervical adenopathy. DISCS/SPINAL CANAL/NEURAL FORAMINA: C2-C3: C2-3: Loss of intervertebral disc height. There is endplate spondylosis of the vertebral body. Normal central canal and intervertebral neuroforamina. There is bilateral facet arthropathy. C3-C4: C3-4: Loss of intervertebral disc height. There is endplate spondylosis of the vertebral body. Narrowing of the bilateral intervertebral neuroforamina. There is bilateral facet arthropathy. Posterior disc bulge. Mild spinal stenosis. Impression upon anterior thecal sac. C4-C5: C4-5: Loss of intervertebral disc height. There is endplate spondylosis of the vertebral body. Narrowing of the bilateral intervertebral neuroforamina. There is bilateral facet arthropathy. Posterior disc bulge. Mild spinal stenosis. Impression upon anterior thecal sac. Mild cord compression. C5-C6: C5-6: Loss of intervertebral disc height. There is endplate spondylosis of the vertebral body. Narrowing of the bilateral intervertebral neuroforamina. There is bilateral facet arthropathy. Posterior disc bulge. Mild spinal stenosis. Impression upon anterior thecal sac. C6-C7: C6-7: Loss of intervertebral disc height. There is endplate spondylosis of the vertebral body. Narrowing of the bilateral intervertebral neuroforamina. There is bilateral facet arthropathy. Posterior disc bulge. Normal spinal canal. C7-T1: Loss of intervertebral disc height. There is endplate spondylosis of the vertebral body. Normal central canal and intervertebral neuroforamina. There is bilateral facet arthropathy. Posterior disc bulge. MRI/Spine Cervical (Routine) IMPRESSION: 1. There is straightening of the normal cervical lordosis. 2. C4-5: Loss of intervertebral disc height. There is endplate spondylosis of the vertebral body. Narrowing of the bilateral intervertebral neuroforamina. There is bilateral facet arthropathy. Posterior disc bulge. Mild spinal stenosis. Impression upon anterior thecal sac. Mild cord compression. 3. C5-6: Loss of intervertebral disc height. There is endplate spondylosis of the vertebral body. Narrowing of the bilateral intervertebral neuroforamina. There is bilateral facet arthropathy. Posterior disc bulge. Mild spinal stenosis. Impression upon anterior thecal sac. Electronically Signed: Anson Hilton MD at 15:07 EDT ,
--- NOTE | 2022-03-12 09:36 | MRI_ITS ---
STUDY: MR Brain WO/W Contrast 03/12/2022 3:07 PM REASON FOR EXAM: Male, 87 years old. Parkinson''s, dementia, gait disorder COMPARISON: 5.6. TECHNIQUE: Standardized multiplanar fat and water weighted pulse sequences were obtained. MR Brain WO/W Contrast FINDINGS: There is mild cerebral atrophy with widening of the extra-axial spaces and ventricular dilatation. There are a limited number of small white matter hyperintensities, distributed throughout the deep white matter tracts of the cerebral hemispheres, consistent with mild chronic white matter ischemic changes. There is mild prominence of the vermian folia, consistent with atrophy of the vermis. The cerebellar hemispheres are normal. Normal bilateral basal ganglia. Normal thalami. There is no extra-axial fluid accumulation. Normal flow voids within the major intracranial circulation suggesting patency by spin echo criteria. Normal sella turcica, pituitary gland, infundibular stalk, optic chiasm and hypothalamus. Normal tectal plate and pineal gland. Normal midbrain, arjun and medulla. Normal basal cisterns. Normal bilateral temporal bones. Normal bilateral internal auditory canals. No demonstrated orbital abnormality, within the constraints of a routine brain study. Normal visualized paranasal sinuses. Normal calvarium and skull base. Normal visualized soft tissue structures. Normal visualized upper cervical spine. Aspect score 10 IMPRESSION: (NOT LISTED IN ORDER OF SIGNIFICANCE) There are no acute intracranial findings. Electronically Signed: Anson Hilton MD at 15:09 EDT , MRI/Brain W/WO Contrast
== END 2022-03-12 23:59 | disposition home or self-care (01) ==
LOC: MRI 09:27
PROVIDERS: PCP Family Medicine; Visit Provider Psychiatry & Neurology Neurology
DX: R26.9 Unspecified abnormalities of gait and mobility (principal); G20 Parkinson's disease; F02.80 Dementia in other diseases classified elsewhere, unspecified severity, without behavioral disturbance, psychotic disturbance, mood disturbance, and anxiety
CPT/HCPCS: 70553; 72141; A9575

== ENCOUNTER → 2022-04-10 | Outpatient (CLI) | payer MEDICARE, MEDICAID, SELFPAY ==
--- NOTE | 2022-04-10 12:54 | CDU_ITS ---
Reason For Study: Bilateral internal carotid artery stenosis Rt. Velocities/BP Lt. Velocities/BP Prox CCA 55.1/5 cm/sec. Prox CCA 52.6/6.4 cm/sec. Mid CCA 47.5/6.9 cm/sec. Mid CCA 57/8.1 cm/sec. Dist CCA 39/7.8 cm/sec. Dist CCA 38.6/7.2 cm/sec. Prox ICA 32.2/6.6 cm/sec. Prox ICA 58.7/14.2 cm/sec. Mid ICA 36.9/7.2 cm/sec. Mid ICA 44.7/10.7 cm/sec. Dist ICA 40.4/15.1 cm/sec. Dist ICA 54.3/16.8 cm/sec. Rt. ICA/CCA = 0.85. Lt. ICA/CCA = 1.12. Prox ECA 45.6/6.9 cm/sec. Prox ECA 53.5/7.2 cm/sec. Rt. Vert. 25.6/7.2 cm/sec. Lt. Vert. 26.5/7.3 cm/sec. Right Extracranial There is homogeneous, smooth atherosclerotic plaque noted in the right common carotid artery. There is heterogeneous, irregular atherosclerotic plaque noted in the right internal carotid artery. There is homogeneous, smooth atherosclerotic plaque noted in the right external carotid artery. Antegrade flow is noted in the right vertebral artery. Left Extracranial There is homogeneous, smooth atherosclerotic plaque noted in the left common carotid artery. There is heterogeneous, irregular atherosclerotic plaque noted in the left internal carotid artery. There is intimal thickening but no significant atherosclerotic plaque noted in the left external carotid artery. Antegrade flow is noted in the left vertebral artery. Procedure Carotid Duplex 10969. This is a Carotid Duplex examination using B-mode, color flow and specral Doppler. The study was technically difficult. Exam performed in department. VL/Carotid Duplex Ultrasound Interpretation Summary Irregular calcific plaque with shadowing at the proximal right internal carotid artery with less than 50% stenosis Less than 50% stenosis right external carotid artery Irregular calcific plaque at the proximal left internal carotid artery with les s than 50% stenosis Less than 50% stenosis left external carotid artery Patent and antegrade vertebral arteries bilaterally Ordering Physician: Nahum Rice Referring Physician: Pawel Parra Performed By: María Elena Stone RVT
== END | disposition home or self-care (01) ==
LOC: CVS 12:53
PROVIDERS: PCP Family Medicine; Visit Provider Psychiatry & Neurology Neurology
DX: I65.23 Occlusion and stenosis of bilateral carotid arteries (principal)
CPT/HCPCS: 93880

== ENCOUNTER 2023-07-13 05:47 | Emergency (ER) | payer MEDICARE, MEDICAID, SELFPAY ==
[2023-07-13 05:56] VITALS: BP 146/84; PULSE 81; RESP 16; TEMP 36.4; O2SAT 94; BMI 28.3
--- NOTE | 2023-07-13 05:59 | EDS_ITS ---
HPI History of Present Illness Chief Complaint: Other, Pain/Inj PFSH [facility], [facility] Medical History (Updated 07/13/23 @ 06:[address] Patricio Welsh, DO) Anxiety disorder, unspecified Benign prostatic hyperplasia with lower urinary tract symptoms Chronic obstructive pulmonary disease, unspecified Dehydration Dementia Dementia with Lewy bodies Diarrhea Diplopia Dry eye syndrome of bilateral lacrimal glands Elevated WBC count Essential (primary) hypertension Generalized anxiety disorder GERD (gastroesophageal reflux disease) Hypertensive retinopathy, bilateral Impulse disorder, unspecified Major depressive disorder Migraine Muscle weakness (generalized) Obesity, unspecified Other right bundle-branch block Parkinson disease Parkinsons disease Peripheral vascular disease Presence of intraocular lens Repeated falls Unspecified atrial fibrillation Home Medications aspirin 81 mg tablet,delayed release 81 mg PO DAILY heart health 05/19/20 [History Last Taken 04/06/21 08:24] fluticasone propionate 50 mcg/actuation nasal spray,suspension (Flonase Allergy Relief) 2 spray intranasal DAILY 05/19/20 [History Last Taken 04/06/21 08:24] ipratropium 20 mcg-albuterol 100 mcg/actuation mist for inhalation (Combivent Respimat) 1 puff inhalation 4X/DAY copd 05/19/20 [History Last Taken 04/05/21 11:49] melatonin 3 mg tablet 3 mg PO QHS sleep 05/19/20 [History Last Taken 04/05/21 20:14] memantine 10 mg tablet 10 mg PO BID memory 05/19/20 [History Last Taken 04/06/21 08:24] mirtazapine 15 mg tablet (Remeron) 15 mg PO QHS 05/19/20 [History Last Taken 04/05/21 20:14] omeprazole 40 mg capsule,delayed release 40 mg PO DAILY gerd 05/19/20 [History Last Taken 04/06/21 08:24] paroxetine HCl 40 mg tablet 40 mg PO DAILY 05/19/20 [History Last Taken 04/06/21 08:24] tamsulosin 0.4 mg capsule 0.4 mg PO DAILY 05/19/20 [History Last Taken 04/05/21 20:14] lisinopril 20 mg tablet 20 mg PO DAILY htn 12/23/20 [History Last Taken 04/06/21 08:24] multivitamin with minerals 1 tab PO DAILY supplement 12/23/20 [History Last Taken 04/06/21 08:24] acetaminophen 325 mg tablet (Tylenol) 325 mg PO TID PRN Pain 04/06/21 [History Last Taken 04/06/21 05:03] furosemide 40 mg tablet 40 mg PO DAILY 04/06/21 [History Last Taken 04/06/21 08:24] gabapentin 100 mg capsule 100 mg PO QHS 04/06/21 [History Last Taken 04/05/21 20:14] metoprolol tartrate 25 mg tablet 12.5 mg PO BID AFIB 04/06/21 [History Last Taken 04/06/21 08:24] nut tx, lact-reduced, iron 0.09 gram-2.25 kcal/mL oral liquid (Boost VHC) 1 ea PO TID SUPPLEMENT 04/06/21 [History Last Taken 04/06/21 08:24] sennosides 8.6 mg tablet (senna) 8.6 mg PO DAILY CONSTIPATION 04/06/21 [History Last Taken 04/06/21 08:24] carbidopa 25 mg-levodopa 100 mg tablet 1 tab PO BID #60 tabs 02/22/22 [Rx Last Taken Unknown] magnesium hydroxide 400 mg/5 mL oral suspension (Milk of Magnesia) 30 ml PO DAILY PRN 02/22/22 [History Last Taken Unknown] atorvastatin 40 mg tablet 40 mg PO QHS 05/01/22 [History Last Taken Unknown] polyethylene glycol 3350 17 gram/dose oral powder (Miralax) 4 g PO DAILY 05/01/22 [History Last Taken Unknown] Allergy/AdvReac Type Severity Reaction Status Date / Time No Known Allergies Allergy Verified 07/13/23 05:49 Surgical History No pertinent past surgical history Social History Smoking Status: Unknown if ever smoked Tobacco: How many years used: 9 EXAM Physical Exam Const Vital Signs: 07/13/23 05:56 07/13/23 06:00 Temperature 97.6 F L Temperature Source Temporal Pulse Rate 81 Respiratory Rate 16 Respiratory Effort Normal Respiratory Pattern Normal Blood Pressure 146/84 H Blood Pressure Mean 104 Pulse Ox 94 MDM MDM MDM Narrative Medical decision making narrative: HISTORY OF PRESENT ILLNESS: 88-year-old male here with concern for him being difficult to arouse. Patient states he has no complaints. Denies headache, shortness of breath, chest pain, focal weakness, fever, vomiting, abdominal pain, diarrhea or increased frequency of urination. Per the patient nurse facility he was found in his room with his BiPAP mask off and he typically has it on. Per nursing staff patient was difficult to arouse which prompted them to call EMS for further ED evaluation. REVIEW OF SYSTEMS: Pertinent positives: None Pertinent negatives: Please see above PHYSICAL EXAM: Nursing triage notes reviewed, Vital signs reviewed Constitutional: please see mdm HENT: MMM Eyes: Pupils equal round and reactive to light, Extraocular muscles intact Neck: No stridor, no JVD, full neck ROM Lungs: Clear to auscultation, No wheezing or rales. No increased work of breathing, no conversational dyspnea, no accessory muscle use, no nasal flaring. No respiratory distress noted Heart: Regular rate and rhythm, No murmurs, No rubs and No gallops, 2+ distal pulses (radial, femoral, posterior tibial) in all extremities Abdomen: Soft, there is no tenderness, rigidity, rebound or guarding, no obvious peritoneal signs, no palpable pulsatile abdominal masses, no auscultated abdominal bruit : No CVAT Extremities: No edema Neuro: Alert and oriented x3 no focal neurological deficits, cranial nerves II through XII intact, 5/5 strength in all extremities. Intact sensation to light touch in all extremities, 2+ reflexes bilateral patella tendons. No extremity ataxia. MEDICAL DECISION MAKING: Chief Complaint: Difficult to arouse External records reviewed: Last ED visit was for dementia in April 2021 Factors affecting care: Dementia, Parkinson's disease, CVA, heart failure, GERD, hypertension Social determinants of health: Elderly, dementia History obtained from others: EMS, alf Goals of care: Patient is DNR CC Consults: none ALL IMAGES (IF OBTAINED) HAVE BEEN PERSONALLY REVIEWED AND INTERPRETED BY MYSELF. MDM Narrative: Patient was hemodynamically stable, afebrile, nontoxic-appearing. Patient was easily arousable. Was noted to voice. He was actually alert and oriented x3 for me today. Exam was unremarkable. Patient had no complaints. No indication for further labs or images at this time. Patient is appropriate for return to his nursing facility. The patient and/or family, caregivers express understanding. The patient and/or family, caregivers agrees with the plan. Shared decision making: I will have a discussion with the patient and or visitors regarding risk/benef its of further testing or admission. They will be made aware of of the risk/benefits inherent in this decision they will be given the opportunity to voice understanding. Total critical care time today provided was at least 0 minutes. This excludes separately billable procedures. Critical care time (if documented) is secondary to the patient having high probability of clinically significant/life threatening deterioration in the patient's condition which required my urgent intervention. Discharge Plan Triage Chief Complaint: Other, Pain/Inj ED Provider: Patricio Welsh Dx/Rx/DC Orders Clinical Impression: History of dementia, Well adult health check Prescriptions: No Action aspirin 81 mg tablet,delayed release (DR/EC) 81 mg PO DAILY Combivent Respimat 20-100 mcg/actuation mist 1 puff INHALATION 4X/DAY fluticasone propionate [Flonase Allergy Relief] 50 mcg/actuation spray,suspension 2 spray INTRANASAL DAILY Rx Instructions: administer into each nostril melatonin 3 mg tablet 3 mg PO QHS memantine 10 mg tablet 10 mg PO BID omeprazole 40 mg capsule,delayed release(DR/EC) 40 mg PO DAILY paroxetine HCl 40 mg tablet 40 mg PO DAILY mirtazapine [Remeron] 15 mg tablet 15 mg PO QHS tamsulosin 0.4 mg capsule 0.4 mg PO DAILY magnesium hydroxide [Milk of Magnesia] 400 mg/5 mL suspension 30 ml PO DAILY PRN carbidopa-levodopa 25-100 mg tablet 1 tab PO BID Qty: 60 4RF atorvastatin 40 mg tablet 40 mg PO QHS polyethylene glycol 3350 [Miralax] 17 gram/dose powder 4 g PO DAILY lisinopril 20 MG tablet 20 mg PO DAILY multivitamin with minerals 1 EACH tablet 1 tab PO DAILY furosemide 40 mg Tablet 40 mg PO DAILY sennosides [senna] 8.6 mg Tablet 8.6 mg PO DAILY acetaminophen [Tylenol] 325 mg Tablet 325 mg PO TID PRN (Reason: Pain) gabapentin 100 mg Capsule 100 mg PO QHS metoprolol tartrate 25 mg Tablet 12.5 mg PO BID Boost VHC 0.09-2.25 gram-kcal/mL Liquid 1 ea PO TID Primary Care Provider: Pawel Parra Referrals: Pawel Parra MD [Primary Care Provider] - Activity Restrictions/Additional Instructions: Thank you for trusting us with your care today! Please return to the emergency department if your symptoms change or worsen. Please follow with your primary care physician for further outpatient evaluation and management. Disposition Disposition: Home, Self Care
--- NOTE | 2023-07-13 08:12 | NURSING ---
CALLED ABOUT ETA FOR [facility]. ETA IS ABOUT ANOTHER HOUR
--- NOTE | 2023-07-13 09:12 | ED.RN ---
REPORT GIVEN TO PHYSICIANS
== END 2023-07-13 09:24 | disposition home or self-care (01) ==
LOC: ED 06:23
PROVIDERS: Emergency Provider Emergency Medicine; PCP Family Medicine; Visit Provider Emergency Medicine
DX: Z00.00 Encounter for general adult medical examination without abnormal findings (principal); G20 Parkinson's disease; F02.80 Dementia in other diseases classified elsewhere, unspecified severity, without behavioral disturbance, psychotic disturbance, mood disturbance, and anxiety; J44.9 Chronic obstructive pulmonary disease, unspecified; I50.9 Heart failure, unspecified; I11.0 Hypertensive heart disease with heart failure; I48.91 Unspecified atrial fibrillation; K21.9 Gastro-esophageal reflux disease without esophagitis; Z79.899 Other long term (current) drug therapy; Z79.82 Long term (current) use of aspirin; F41.1 Generalized anxiety disorder; N40.0 Benign prostatic hyperplasia without lower urinary tract symptoms; Z86.73 Personal history of transient ischemic attack (TIA), and cerebral infarction without residual deficits; F32.9 Major depressive disorder, single episode, unspecified
CPT/HCPCS: 99284

== ENCOUNTER 2024-10-04 21:14 | Emergency (ER) | payer MEDICARE, MEDICAID, SELFPAY ==
[2024-10-04 21:16] VITALS: BP 139/91; PULSE 81; RESP 16; TEMP 36.9; O2SAT 96; BMI 27.9
--- NOTE | 2024-10-04 21:20 | EDS_ITS ---
HPI History of Present Illness Chief Complaint: Other, Pain/Inj Detail of Chief Complaint: Per patient I do not know . Per paramedics had neck pain Informant: patient, EMS and SNF Onset/Context/Timing Onset: Today (Presumed) Context: - (Unknown) Timing: - (Based on history and physical is intermittent) Quality: Pain Location: Posterior neck Current Severity: Gone Maximum Severity: Patient grimaces when asked to rise from reclined position to upright posit Worsened by: Movement Relieved by: Remaining still Associated Symptoms Associated Symptoms: Nothing, however patient does have dementia Narrative Narrative: Patient is a 89-year-old male who arrives by ambulance. He does not know why he is here or how he got here. Review of prior records indicates he has dementia with Lewy bodies. Patient also has history of Parkinson disease and nursing facility was concerned she has increased tremors. He also has history of myoclonic jerking motions. Also has history of tremors per old records. Presently patient denies any pain. He denies head pain. Denies trouble with his vision. He denies ear pain. He denies neck pain. He denies chest pain. He denies abdominal pain or low back pain. Patient is not a good informant due to his dementia. Recent Illness/Hospitalization: No [facility] Medical History Dementia Parkinson disease Elevated WBC count Repeated falls Dehydration Diarrhea Benign prostatic hyperplasia with lower urinary tract symptoms Muscle weakness (generalized) GERD (gastroesophageal reflux disease) Essential (primary) hypertension Diplopia Migraine Impulse disorder, unspecified Presence of intraocular lens Hypertensive retinopathy, bilateral Dry eye syndrome of bilateral lacrimal glands Unspecified atrial fibrillation Other right bundle-branch block Obesity, unspecified Generalized anxiety disorder Peripheral vascular disease Dementia with Lewy bodies Anxiety disorder, unspecified Major depressive disorder Chronic obstructive pulmonary disease, unspecified Parkinsons disease Home Medications ?Medication ?Instructions ?Recorded ?Last Taken ?Type aspirin 81 mg tablet,delayed 81 mg PO DAILY heart health 05/19/20 04/06/21 08:24 History release ipratropium 20 mcg-albuterol 100 1 puff inhalation 4X/DAY copd 05/19/20 04/05/21 11:49 History mcg/actuation mist for inhalation (Combivent Respimat) melatonin 3 mg tablet 3 mg PO QHS sleep 05/19/20 04/05/21 20:14 History memantine 10 mg tablet 10 mg PO BID memory 05/19/20 04/06/21 08:24 History omeprazole 40 mg capsule,delayed 40 mg PO DAILY gerd 05/19/20 04/06/21 08:24 History release paroxetine HCl 40 mg tablet 30 mg PO DAILY 05/19/20 04/06/21 08:24 History tamsulosin 0.4 mg capsule 0.4 mg PO QHS 05/19/20 04/05/21 20:14 History lisinopril 20 mg tablet 20 mg PO DAILY htn 12/23/20 04/06/21 08:24 History multivitamin with minerals 1 tab PO DAILY supplement 12/23/20 04/06/21 08:24 History acetaminophen 325 mg tablet 325 mg PO TID Pain 04/06/21 04/06/21 05:03 History (Tylenol) furosemide 40 mg tablet 40 mg PO DAILY 04/06/21 04/06/21 08:24 History gabapentin 100 mg capsule 100 mg PO QHS 04/06/21 04/05/21 20:14 History metoprolol tartrate 25 mg tablet 12.5 mg PO BID AFIB 04/06/21 04/06/21 08:24 History sennosides 8.6 mg tablet (senna) 8.6 mg PO DAILY CONSTIPATION 04/06/21 04/06/21 08:24 History atorvastatin 40 mg tablet 40 mg PO QHS 05/01/22 Unknown History polyethylene glycol 3350 17 17 g PO DAILY 05/01/22 Unknown History gram/dose oral powder (Miralax) carbidopa 25 mg-levodopa 100 mg 1 tab PO TID 10/04/24 Unknown History tablet guaifenesin 600 mg tablet, 600 mg PO DAILY 10/04/24 Unknown History extended release 12 hr (Mucinex) hydrocodone-acetaminophen 5-325mg 1 tab PO Q6H PRN PRN Pain 3 days 10/04/24 Unknown Rx 5mg-325mg #10 TABLETS meclizine 25 mg chewable tablet 12.5 mg PO DAILY 10/04/24 Unknown History (Eduarda) Allergy/AdvReac Type Severity Reaction Status Date / Time No Known Allergies Allergy Verified 10/04/24 21:21 Surgical History No pertinent past surgical history Social History Smoking Status: Former smoker Tobacco: How many years used: 9 ROS ROS ED Review of Systems ROS Unobtainable: due to mental status EXAM Physical Exam Const Vital Signs: 10/04/24 21:16 10/04/24 21:30 Temperature 98.4 F Temperature Source Oral Pulse Rate 81 Respiratory Rate 16 Respiratory Effort Normal Short of Breath Respiratory Pattern Normal Blood Pressure 139/91 H Blood Pressure Mean 107 Pulse Ox 96 Oxygen Delivery Method Room Air Oxygen Flow Rate (L/min) 2 Positive well nourished and well developed General Appearance ED: well developed and NAD; Negative for pallor HEENT Reports moist mucous membranes HEENT Narrative: Head is atraumatic normocephalic. Ears are normal. Nares are patent. Posterior pharynx is normal. Eyes PERRL and EOMs intact bilaterally General Eye ED: Negative for pale conjunctiva or scleral icterus Neck no lymphadenopathy, supple and no JVD Neck Narrative: Having patient flexes head/neck against resistance causes discomfort. Rising from incline position to upright position causes him discomfort posterior neck. General: tenderness Chest Wall inspection of chest normal and palpation of chest normal Resp normal respiratory effort and clear to auscultation bilaterally Cardio regular rate, regular rhythm and no murmurs Back/Spine no CVA tenderness Back/Spine Narrative: Patient has bilateral paracervical discomfort to deep palpation. No posterior midline pain to palpation Extremity normal to inspection General Extremety ED: Negative for edema General Extremity: Negative for edema Neuro No oriented x3, CN's II-XII intact bilaterally and no sensory deficits noted Sensorium / Orientation: alert Motor Exam: strength 5/5 throughout Psych mental status grossly normal Skin no rashes or lesions noted and no wounds General Skin Exam: Negative for jaundice or pallor MDM MDM MDM Narrative Medical decision making narrative: Patient arrives by ambulance from nursing facility. Patient has a signed DNR comfort care document that accompany him. The document is very specific what not to do. Based on history and physical patient has muscular neck pain. Since there is no history of trauma and neuroexam is normal other than his disorientation there is no indication for imaging. He was treated with pain medicine. Plan is to discharge on pain medicine. Discharge Plan Triage Chief Complaint: Other, Pain/Inj ED Provider: Crouch,Jonatan Dx/Rx/DC Orders Clinical Impression: Bilateral posterior neck pain, Essential (primary) hypertension, Parkinson disease, Tremors of nervous system, Cerebrovascular disease, Dementia with Lewy bodies Instructions: ED Neck Pain Prescriptions: New hydrocodone-acetaminophen 5-325 mg tablet 1 tab PO Q6H PRN PRN (Reason: Pain) 3 Days Qty: 10 0RF No Action aspirin 81 mg tablet,delayed release (DR/EC) 81 mg PO DAILY Combivent Respimat 20-100 mcg/actuation mist 1 puff INHALATION 4X/DAY melatonin 3 mg tablet 3 mg PO QHS memantine 10 mg tablet 10 mg PO BID omeprazole 40 mg capsule,delayed release(DR/EC) 40 mg PO DAILY paroxetine HCl 40 mg tablet 30 mg PO DAILY tamsulosin 0.4 mg capsule 0.4 mg PO QHS atorvastatin 40 mg tablet 40 mg PO QHS polyethylene glycol 3350 [Miralax] 17 gram/dose powder 17 g PO DAILY lisinopril 20 MG tablet 20 mg PO DAILY multivitamin with minerals 1 EACH tablet 1 tab PO DAILY furosemide 40 mg Tablet 40 mg PO DAILY sennosides [senna] 8.6 mg Tablet 8.6 mg PO DAILY acetaminophen [Tylenol] 325 mg Tablet 325 mg PO TID gabapentin 100 mg Capsule 100 mg PO QHS metoprolol tartrate 25 mg Tablet 12.5 mg PO BID meclizine [Bonine] 25 mg tablet,chewable 12.5 mg PO DAILY guaifenesin [Mucinex] 600 mg tablet extended release 12hr 600 mg PO DAILY carbidopa-levodopa 25-100 mg tablet 1 tab PO TID Primary Care Provider: Pawel Parra Referrals: Pawel Parra MD [Primary Care Provider] - As Needed Print Language: Bermudian Disposition Disposition: Home, Self Care
[2024-10-04] MEDS: HYDROcodone Bitartrate/Apap 5/325 Tablet PO (21:32)
[2024-10-04 21:56] VITALS: BP 162/73; PULSE 65; RESP 15; TEMP 35.9; O2SAT 96
== END 2024-10-04 22:06 | disposition home or self-care (01) ==
PROVIDERS: Emergency Provider Emergency Medicine; PCP Family Medicine; Visit Provider Emergency Medicine
DX: G31.83 Neurocognitive disorder with Lewy bodies (principal); G20.A1 Parkinson's disease without dyskinesia, without mention of fluctuations; F02.80 Dementia in other diseases classified elsewhere, unspecified severity, without behavioral disturbance, psychotic disturbance, mood disturbance, and anxiety; J44.9 Chronic obstructive pulmonary disease, unspecified; I48.91 Unspecified atrial fibrillation; Z87.891 Personal history of nicotine dependence; I10 Essential (primary) hypertension; I67.9 Cerebrovascular disease, unspecified; Z79.899 Other long term (current) drug therapy; K21.9 Gastro-esophageal reflux disease without esophagitis; F32.9 Major depressive disorder, single episode, unspecified; F41.9 Anxiety disorder, unspecified; N40.0 Benign prostatic hyperplasia without lower urinary tract symptoms
CPT/HCPCS: 99284